=== PATIENT | female | born 1955 ===

== ENCOUNTER → 2021-02-18 11:27 | Outpatient (BNVA) | payer MEDICARE, BC, SELFPAY | PROVIDERS: PCP Internal Medicine; Visit Provider Hospitalist | DX: J41.8 Mixed simple and mucopurulent chronic bronchitis (principal); J47.9 Bronchiectasis, uncomplicated; R91.8 Other nonspecific abnormal finding of lung field; A31.9 Mycobacterial infection, unspecified | CPT/HCPCS: 99212 ==

== ENCOUNTER 2021-05-01 11:41 | Outpatient (REF) | payer MEDICARE, BC, SELFPAY | END 2021-05-01 11:42 | disposition home or self-care (01) | LOC: HO.LNP 11:41 | PROVIDERS: Visit Provider Hospitalist | DX: J47.9 Bronchiectasis, uncomplicated (principal); R91.8 Other nonspecific abnormal finding of lung field | CPT/HCPCS: 87070; 87116; 87205 ==

== ENCOUNTER → 2021-08-20 11:05 | Outpatient (BNVA) | payer MEDICARE, BC, SELFPAY | PROVIDERS: PCP Internal Medicine; Visit Provider Hospitalist | DX: J47.9 Bronchiectasis, uncomplicated (principal); R91.8 Other nonspecific abnormal finding of lung field; J41.8 Mixed simple and mucopurulent chronic bronchitis; A31.9 Mycobacterial infection, unspecified | CPT/HCPCS: 99212 ==

== ENCOUNTER 2021-12-27 10:14 | Outpatient (REF) | payer MEDICARE, BC, SELFPAY ==
--- NOTE | ~2021-12-27 | CT_ITS ---
EXAMINATION: CT CHEST WITHOUT CONTRAST CLINICAL INFORMATION: Pulmonary nodules. Bronchiectasis. COMPARISON: None TECHNIQUE: Multidetector volumetric CT imaging of the chest was done. Axial MIP volume rendering provided. Sagittal and coronal reformatted images were obtained. This CT examination was performed using dose optimization techniques as appropriate, variously including the following: *Automated exposure control *Adjustment of mA and/or kV according to patient size (this includes techniques or standardized protocols for targeted exams where dose is matched to indication/reason for exam; i.e. extremities or head) *Use of iterative reconstruction technique DLP: 303 mGy-cm FINDINGS: The heart is normal in size. Coronary artery calcifications are present. There is no pericardial effusion. A few normal-sized mediastinal lymph nodes are noted. Normal caliber thoracic aorta. No gross retroperitoneal lymphadenopathy. Central airways are patent although some peripheral mucous plugging is noted. There is mild biapical architectural distortion/scarring. There is mild bronchiectasis with suspected compressive atelectasis within the right middle lobe and to a lesser extent within the lingula. Scattered areas of subtle tree-in-bud opacities are noted throughout both lungs. There are a few more well-defined pulmonary nodules, particularly within the right lower lobe where a cluster of nodules measures up to 3.5 mm (image 180/344, series 7). There is no pleural effusion or pneumothorax. Visualized portions of the upper abdomen demonstrate a 7 mm left hepatic cyst. There is also a 2 cm cyst noted within the anterior spleen. Punctate calcification present within the spleen. Mild degenerative changes of the spine. CT/CT chest wo con IMPRESSION: -Subtle scattered areas of tree-in-bud opacities present throughout the lungs suggesting a very mild inflammatory versus infectious process. Clinical correlation recommended. -A few small true pulmonary nodules are identified, the largest measuring 3.5 mm. According to the UPDATED 2017 Fleischner Society recommendations, the advised follow-up imaging for solid nodules < 6 mm is: LOW RISK PATIENT: No routine follow-up. HIGH RISK PATIENT: Optional CT at 12 months. Fleischner guidelines were followed.
== END 2021-12-27 10:15 | disposition home or self-care (01) ==
LOC: HO.CT 10:14
PROVIDERS: Visit Provider Hospitalist
DX: R91.8 Other nonspecific abnormal finding of lung field (principal); J47.9 Bronchiectasis, uncomplicated
CPT/HCPCS: 71250

== ENCOUNTER → 2022-01-15 10:47 | Outpatient (BNVA) | payer MEDICARE, BC, SELFPAY | PROVIDERS: PCP Student in an Organized Health Care Education/Training Program; Visit Provider Hospitalist | DX: R91.8 Other nonspecific abnormal finding of lung field (principal); J41.8 Mixed simple and mucopurulent chronic bronchitis; J47.9 Bronchiectasis, uncomplicated; A31.9 Mycobacterial infection, unspecified | CPT/HCPCS: 99212 ==

== ENCOUNTER → 2022-06-20 11:09 | Outpatient (BNVA) | payer MEDICARE, BC, SELFPAY | PROVIDERS: PCP Student in an Organized Health Care Education/Training Program; Visit Provider Hospitalist | DX: J40 Bronchitis, not specified as acute or chronic (principal); J41.8 Mixed simple and mucopurulent chronic bronchitis; J47.9 Bronchiectasis, uncomplicated; R91.8 Other nonspecific abnormal finding of lung field; A31.9 Mycobacterial infection, unspecified | CPT/HCPCS: 99212 ==

== ENCOUNTER 2022-09-12 09:58 | Outpatient (REF) | payer MEDICARE, BC, SELFPAY ==
--- NOTE | ~2022-09-12 | CT_ITS ---
EXAMINATION: CT CHEST WITHOUT CONTRAST CLINICAL INFORMATION: Abnormal lung findings. COMPARISON: CT chest 12/27/2021. TECHNIQUE: Multidetector volumetric CT imaging of the chest was done. Axial MIP volume rendering provided. Sagittal and coronal reformatted images were obtained. This CT examination was performed using dose optimization techniques as appropriate, variously including the following: *Automated exposure control *Adjustment of mA and/or kV according to patient size (this includes techniques or standardized protocols for targeted exams where dose is matched to indication/reason for exam; i.e. extremities or head) *Use of iterative reconstruction technique DLP: 149 mGy-cm FINDINGS: CLIENT APPLICATION SUPPORT SPECIALIST: Well-inflated lungs. LUNGS: The lungs are hyperinflated without any acute pneumonic process. There are tree in branching in the right upper lobe with a small tumor nodule right upper lobe axial image 162/5. Small clusters of reticular nodular branching is seen right lower lobe superior segment axial image 217/5, tree in branching pattern right upper lobe axial image 229/5 through 238/5. Tree in branching pattern is also seen in the right upper lobe higher up on axial image 158/6 through 218/5. Mild focal thickening of right lateral major fissure image 251/5 reticular nodular stranding right upper lobe axial image 245/5 focal atelectatic changes in the right middle lobe with mild bronchiectasis on axial image 333/5. Tree in branching pattern is seen in the right middle lobe right lower lobe as well as the lingular segments. There is focal atelectasis or thickening of left major fissure at the lingula. MEDIASTINUM: The heart size and the great vessels are normal caliber. Thyroid lobes are symmetric and normal. The central trachea and the bronchi are widely patent. No pericardial effusion seen. No abnormal size mediastinal or hilar lymph nodes seen. CORONARY ARTERY CALCIFICATION: Mild coronary artery calcifications are present. PLEURA: There is no pleural effusion. No pleural mass or thickening. AXILLA: Small shotty lymph nodes are seen in the axilla. UPPER ABDOMEN: Visualized liver, spleen, pancreas and bilateral adrenal glands are unremarkable. OSSEOUS STRUCTURES: No aggressive lytic or sclerotic process seen. CT/CT chest wo IV con IMPRESSION: 1. Hyperinflated lungs without any acute pneumonic process. 2. There is tree in branching pattern in the right upper lobe, right middle lobe, right lower lobe and lingular segments. There is mild bronchiectasis in the right middle lobe. Scattered small micronodules are seen as well. Right middle lobe and lingular atelectasis with mild bronchiectasis changes in these segments. 3. No abnormal mediastinal or axillary lymph nodes seen. 4. These findings are stable and unchanged to previous study. Fleischner guidelines were followed.
== END 2022-09-12 09:59 | disposition home or self-care (01) ==
LOC: HO.CT 09:58
PROVIDERS: PCP Student in an Organized Health Care Education/Training Program; Visit Provider Hospitalist
DX: R91.8 Other nonspecific abnormal finding of lung field (principal)
CPT/HCPCS: 71250

== ENCOUNTER → 2022-09-23 10:57 | Outpatient (BNVA) | payer MEDICARE, BC, SELFPAY | PROVIDERS: PCP Student in an Organized Health Care Education/Training Program; Visit Provider Hospitalist | DX: R91.8 Other nonspecific abnormal finding of lung field (principal); J47.9 Bronchiectasis, uncomplicated; J41.8 Mixed simple and mucopurulent chronic bronchitis; A31.9 Mycobacterial infection, unspecified | CPT/HCPCS: 99212 ==

== ENCOUNTER → 2023-01-16 14:43 | Outpatient (BNVA) | payer MEDICARE, BC, SELFPAY | PROVIDERS: PCP Student in an Organized Health Care Education/Training Program; Visit Provider Nurse Practitioner Family | DX: J41.8 Mixed simple and mucopurulent chronic bronchitis (principal); J47.9 Bronchiectasis, uncomplicated | CPT/HCPCS: 99212 ==

== ENCOUNTER 2023-03-17 14:58 | Outpatient (AMB) | payer MEDICARE, BC, SELFPAY ==
--- NOTE | 2023-03-17 15:13 | A.OFFVIS_ITS ---
Intake Vital Signs 03/17/23 15:16 Height 5 ft 6 in Weight 165 lb 5.547 oz BMI 26.7 BP 126/70 Blood Pressure Location Lt brachial Position Sitting Pulse 78 Pulse Source Pulse Oximeter Pulse Oximetry (%) 97 Intake Visit Reasons: Cough dry, times 4 days It Specialist Required: No Store Operations Manager: Store Operations Manager offered & declined Accompanied by: Self / Same As Patient Allergies ciprofloxacin Allergy (Severe, Verified 03/17/23 15:25) CDIFF levofloxacin Allergy (Severe, Verified 03/17/23 15:25) CDIFF moxifloxacin Allergy (Severe, Verified 03/17/23 15:25) CDIFF Clindamycin HCl Allergy (Severe, Uncoded 03/17/23 15:25) CDIFF Medication List - Last Reconciled 03/17/23 by Jo Ann Ballesteros LPN albuterol sulfate 90 mcg/actuation 2 inhalations inhalation Q6H PRN 30 days ascorbic acid (vitamin C) 500 mg PO DAILY aspirin 81 mg PO DAILY atorvastatin 80 mg PO DAILY budesonide-formoterol 160-4.5 mcg/actuation (Symbicort) 2 puffs PO BID calcium carbonate (Calcium) 600 mg PO DAILY cholecalciferol (vitamin D3) 50 mcg PO DAILY doxycycline hyclate 100 mg PO BID lorazepam 0.5 mg PO DAILY PRN multivitamin 1 tab PO DAILY nebulizers As directed omega-3 fatty acids (Fish Oil Concentrate) 1,000 mg PO DAILY omeprazole 40 mg PO DAILY prednisone 40 mg (2 x 20 mg) PO DAILY 5 days propranolol ER 80 mg PO BEDTIME sodium chloride 7% (Hyper-Steve) 4 mL inhalation BID 30 days zinc 50 mg PO DAILY HPI Cough dry, times 4 days HPI Details Nicole is a pleasant 67 year old female followed for bronchiectasis, COPD, mycobacterial disease and pulmonary nodules. Today she presents for a sick visit. At baseline, she is moderately controlled on using her symbicort, albuterol, flonase and hypertonic saline.??She reports a productive with yellow sputum as well as shortness of breath with exertion, wheezing and chest tightness since Thursday after a cookout. She reports increasing her albuterol use to 2-3 times per day with minimal relief. Denies any fevers, chills or known sick contacts. She presented in January with similar presentation and had complete resolution of symptoms after doxycycline and prednisone. [facility] Medical History (Updated 10/16/22 @ 20:23 by Giovanny Anthony MD) Bronchiectasis COPD (chronic obstructive pulmonary disease) Mycobacterial disease Pulmonary nodules Social History (Updated 03/17/23 @ 15:28 by Jo Ann Ballesteros LPN) Patient Tobacco Use Status: Former Tobacco user Tobacco use type: Cigarette Cigarette Packs Per Day: 1 Cigarettes Per Day: 20 Years Smoked: 20 years Review of Systems Const Denies body aches, Denies chills, Denies excessive sweating, Denies fever(s), Reports headache(s) and Denies night sweats Eyes Denies dry eyes, Denies irritation and Denies itchy eyes ENT Reports Normal hearing present, Reports headache(s), Reports nasal discharge, Denies post nasal drip, Reports sinus pain, Reports sinus pressure and Denies sore throat Card Denies chest pain, Denies chest pain at rest, Denies chest pain with activity, Reports dyspnea on exertion, Denies orthopnea and Denies paroxysmal nocturnal dyspnea Resp Reports change in phlegm color, Reports chest congestion, Reports cough, Denies hemoptysis, Reports excessive phlegm production, Denies pain with cough, Reports dyspnea on exertion, Denies stridor and Reports wheezing Neuro Reports Normal hearing present and Reports headache(s) Endo Denies excessive sweating Jorge/Lymph Denies lymphadenopathy Aller/Immun Denies itchy eyes, Denies seasonal rhinorrhea and Reports wheezing Physical Exam Vital Signs: Last Vital Signs Pulse 78 03/17/23 15:16 BP 126/70 03/17/23 15:16 Pulse Ox 97 03/17/23 15:16 BMI result Body Mass Index 26.7 Const General: cooperative, healthy appearing, no acute distress, well developed and alert Orientation/consciousness: patient oriented x3 Limitations: no limitations HEENT Head: Yes normal to inspection, Yes normocephalic and Yes atraumatic Ears: hearing grossly normal bilaterally and external ears normal Face and sinus: Yes sinuses nontender Eyes General: appearance normal, both eyes and all related structures Eyelids: Yes eyelids normal Sclerae: sclerae normal EOM: EOMs intact bilaterally Neck Neck: Yes normal visual inspection and Yes no lymphadenopathy Lymphatic: no lymphadenopathy noted Chest Chest palpation & inspection: normal inspection of the chest Resp Effort & Inspection: normal respiratory effort, able to speak in complete sentences, no audible wheezes, Actively coughing Quality: wet, no stridor, not tachypneic, no tripod positioning and no use of accessory muscles Auscultation: no crackles, no rales, no rhonchi and diminished lung sounds Cardio Rate: regular rate Rhythm: regular rhythm Skin Other: warm, dry General skin exam: no rashes or lesions noted Neuro General: patient oriented x3 Cranial nerves: Yes Normal hearing present Cognition (Neuro): normal cognition Gait exam (Neuro): Normal gait present Extrem General: Yes normal to inspection, Yes capillary refill normal, Yes no clubbing, cyanosis or edema and Yes no pedal edema Psych Appearance: grossly normal and well kempt Speech and movement: Normal speech and movement present and Clear speech present Affect: normal affect Attitude: cooperative Thought process: Normal thought process present Thought content: Normal thought content present Insight: Good insight present (Psych) Judgement: Good judgement present (Psych) Assessment & Plan Assessment & Plan (1) COPD (chronic obstructive pulmonary disease): Code(s): J44.9 - Chronic obstructive pulmonary disease, unspecified Qualifiers: COPD type: chronic bronchitis Chronic bronchitis type: mixed simple and mucopurulent Qualified Code(s): J41.8 - Mixed simple and mucopurulent chronic bronchitis (2) Bronchiectasis: Code(s): J47.9 - Bronchiectasis, uncomplicated Qualifiers: Bronchiectasis type: uncomplicated Qualified Code(s): J47.9 - Bronchiectasis, uncomplicated Plan Nicole presents with increased productive cough, wheezing and dyspnea on exertion that is not relieved with her current medication regimen. Will treat Nicole for an acute exacerbation with doxycycline and prednisone which she has tolerated in the past. She is aware to contact the office if her symptoms do not improve or worsen. All questions were answered and patient is in agreement of plan. Medications: New prednisone 40 mg (2 x 20 mg) PO DAILY 10 tabs 0RF Refilled albuterol sulfate 90 mcg/actuation 2 inhalations inhalation Q6H 30 days PRN 8.5 grams 12RF shortness of breath or wheezing J44.9 - Chronic obstructive pulmonary disease, unspecified Coding Level of Care Code Est Pt Level 3 (06644) Diagnoses COPD (chronic obstructive pulmonary disease) J41.8 COPD type: chronic bronchitis Chronic bronchitis type: mixed simple and mucopurulent Bronchiectasis J47.9 Bronchiectasis type: uncomplicated
[2023-03-17 15:16] VITALS: BP 126/70; PULSE 78; O2SAT 97; BMI 26.7
== END 2023-03-17 15:56 | disposition home or self-care (01) ==
PROVIDERS: PCP Student in an Organized Health Care Education/Training Program; Visit Provider Nurse Practitioner Family
DX: J41.8 Mixed simple and mucopurulent chronic bronchitis (principal); J47.9 Bronchiectasis, uncomplicated
CPT/HCPCS: 99213

== ENCOUNTER → 2023-03-17 14:58 | Outpatient (BNVA) | payer MEDICARE, BC, SELFPAY | PROVIDERS: PCP Student in an Organized Health Care Education/Training Program; Visit Provider Nurse Practitioner Family | DX: J47.9 Bronchiectasis, uncomplicated (principal); J41.8 Mixed simple and mucopurulent chronic bronchitis; R91.8 Other nonspecific abnormal finding of lung field; Z79.82 Long term (current) use of aspirin; Z79.52 Long term (current) use of systemic steroids; Z79.899 Other long term (current) drug therapy; Z87.891 Personal history of nicotine dependence | CPT/HCPCS: 99212 ==

== ENCOUNTER 2024-01-13 11:06 | Outpatient (AMB) | payer MEDICARE, BC, SELFPAY ==
[2024-01-13 11:09] VITALS: BP 117/60; PULSE 73; O2SAT 96; BMI 27.0
--- NOTE | 2024-01-13 11:09 | A.OFFVIS_ITS ---
Vital Signs 01/13/24 11:09 Height 5 ft 6 in Weight 167 lb BMI 27.0 BP 117/60 Blood Pressure Location Rt brachial Position Sitting Pulse 73 Pulse Source Doppler Pulse Oximetry (%) 96 Oxygen Delivery Method Room Air Intake Visit Reasons: COPD Allergies ciprofloxacin Allergy (Severe, Verified 01/13/24 11:15) CDIFF levofloxacin Allergy (Severe, Verified 01/13/24 11:15) CDIFF moxifloxacin Allergy (Severe, Verified 01/13/24 11:15) CDIFF Penicillins Allergy (Unknown, Verified 01/13/24 11:15) Unknown Clindamycin HCl Allergy (Severe, Uncoded 03/17/23 15:25) CDIFF HPI Comments Details: The patient is a 68-year-old woman with a known history of pulmonary nodules, mycobacterium avium complex pulmonary infection in addition to asthma. Apparently she was in her usual state health until recently when she was exposed to sick contact. She started developing worsening respiratory symptoms. She was placed on a 5 day course of prednisone and a Z-Niko. She has felt to have pneumonia at the time. After taking medication she was no better in 1 back to her primary care. At that point the patient was given another course of prednisone x5 days and also doxycycline. Overall she is feeling a little better. Still having issues with shortness of breath and coughing. The mucus is last in amount. On examination she still has wheezing. It's likely she was exposed to respiratory syncytial virus with ongoing bronchiolitis consistent with respiratory symptoms. In the meantime the patient has pulmonary nodules are being followed with yearly CAT scans. Her next CAT scan is to in December of this year. 01/15/2022 the patient is here for a pulmonary follow-up visit. Overall she is doing well. Denies any worsening respiratory symptoms. She has a cough, usually productive after using the nebulizer for CPT, moderate in severity. Denies any fevers or chills or weight loss. The patient did have a recent CT scan of the chest that was personally by me and also compared to her previous CT scan from 2019 done and at different center. It appears that the patient has numerous pulmonary nodules in a lot of them appear to be stable. However, she does have for pulmonary nodules in the right lower lobe that appear to be increasing size now measuring between 4-5 mm in size. The patient is concerned if any of those nodules could be malignant. At this point is likely related to the underlying smoldering infectious process. But, will need to monitor him closely to make sure that they do not increase in size. The patient does have a rescue inhaler available she has not had to use it. She continues on the Symbicort. Will go ahead and follow-up with a CT scan in 8 months. If the patient develops any worsening symptoms prior to that she is to call the office for an earlier evaluation. 06/20/2022 the patient is here for sick visit. She started developing worsening respiratory symptoms the last 4-5 days. She has tested about 6 stent negative for COVID-19. She has complaint of a cough which is productive in nature. Usually yellowish phlegm. The cough is persistent she is having hard time sleeping. To start [id number] cough syrup including Mucinex DM among others without significant relief. Positive sick contacts. The patient has had issues in the past with C diff colitis. Therefore will go ahead with doxycycline to be a good therapy for her likely bacterial bronchitis. 09/23/2022 the patient is here for a pulmonary follow-up visit. The patient has been doing well. She denies any significant shortness of breath or cough. She has been using her nebulizer typically in the morning followed by the flutter valve. Then subsequently after that she takes her Symbicort twice a day. She is wondering if she is taking the Symbicort and the albuterol to close. Therefore, she will take the Symbicort later on during the daytime. The patient did have a CT scan of the chest that we personally reviewed. Appears that he she does have waxing waning nodular densities but overall the pulmonary nodules on the right hemithorax appear to be decreased in size. She does have increased tree-in-bud density likely secondary to her smoldering infection. At this point is no reason to treat her for the mycobacterium avium complex will continue to monitor her closely. Will hold off on additional CT scans unless the patient becomes symptomatic however. 01/13/2024 the patient is here for a pulmonary follow-up visit. Overall the patient has been doing well. She did have a few episodes over the winter when she was became sick and she was evaluated by our office and she was treated effectively for bronchitis. The patient currently is doing better from a respiratory status. She does have a Symbicort inhaler and she also has a Ventolin inhaler which she finds both useful. She has not had to use a nebulizer which is reassuring. She does not have a lot of mucus congestion. She knows to perform the CPT specially if she is congested to minimize mucus plugging and to minimize the mycobacterial disease. The patient did have a CT scan back in September 2022 which we personally reviewed demonstrating multiple subcentimeter pulmonary nodules. The nodules could be related to the mycobacterial disease although he has not 100%. Therefore, will have her return in 6 months with after having a CT scan to review. If the patient develops any worsening symptoms prior to that she will call for an earlier assessment. FORMERLY [facility] Medical History (Updated 06/22/22 @ 20:23 by Giovanny Anthony MD) Mycobacterial disease COPD (chronic obstructive pulmonary disease) Bronchiectasis Pulmonary nodules Social History Patient Tobacco Use Status: Former Tobacco user Tobacco use type: Cigarette Cigarette Packs Per Day: 1 Cigarettes Per Day: 20 Years Smoked: 20 years Review of Systems Const Denies fatigue ENT Denies change in voice, Denies lip swelling, Denies mouth pain, Reports nasal congestion, Reports nasal discharge and Denies tongue swelling Card Denies chest pain Resp Denies change in phlegm color, Denies chest congestion and Reports cough GI Denies abdominal pain Musc Denies no additional complaints Neuro Denies Neuro-related abnormal movements Psych Denies no additional complaints Endo Denies fatigue Jorge/Lymph Denies easy bleeding and Denies lymphadenopathy Aller/Immun Denies lip swelling and Denies tongue swelling Physical Exam Vital Signs: Last Vital Signs Pulse 73 01/13/24 11:09 BP 117/60 01/13/24 11:09 Pulse Ox 96 01/13/24 11:09 Oxygen Delivery Method Room Air 01/13/24 11:09 BMI result Body Mass Index 27.0 Const General: alert HEENT General nose exam: Abnormal external nose present and Nasal discharge present Eyes Pupils: Equal, round and reactive pupils present Neck Neck: Yes normal visual inspection, Yes full ROM and Yes no lymphadenopathy Chest Chest palpation & inspection: normal inspection of the chest Resp Auscultation: diminished lung sounds Cardio Rate: regular rate Rhythm: regular rhythm Heart sounds: S1 normal heart sound present and S2 normal heart sound present GI Palpation (GI): Soft to palpation and nontender Auscultation: normal bowel sounds General: Yes no CVA tenderness Back/Spine/Pelvis Back: no CVA tenderness Skin General skin exam: rashes and/or lesions noted Neuro Cranial nerves: Yes Equal, round and reactive pupils present Assessment & Plan Assessment & Plan (1) COPD (chronic obstructive pulmonary disease): Code(s): J44.9 - Chronic obstructive pulmonary disease, unspecified Category: Medical Qualifiers: COPD type: chronic bronchitis Chronic bronchitis type: mixed simple and mucopurulent Qualified Code(s): J41.8 - Mixed simple and mucopurulent chronic bronchitis (2) Bronchiectasis: Code(s): J47.9 - Bronchiectasis, uncomplicated Category: Medical Qualifiers: Bronchiectasis type: uncomplicated Qualified Code(s): J47.9 - Bronchiectasis, uncomplicated (3) Pulmonary nodules: Code(s): R91.8 - Other nonspecific abnormal finding of lung field Category: Medical (4) Mycobacterial disease: Code(s): A31.9 - Mycobacterial infection, unspecified Category: Medical Plan Continue Symbicort continue CPT with hypertonic saline via nebulizer followed by Acapella valve Use short-acting beta agonist before hypertonic saline CT chest in 6 months Follow-up in 6-8 months Orders: Orders CT chest wo IV con 6 Months R91.8 - Other nonspecific abnormal finding of lung field Coding Level of Care Code Est Pt Level 4 (98837) Diagnoses Mixed simple and mucopurulent chronic bronchitis J41.8 COPD type: chronic bronchitis Chronic bronchitis type: mixed simple and mucopurulent Bronchiectasis without complication J47.9 Bronchiectasis type: uncomplicated Pulmonary nodules R91.8 Mycobacterial disease A31.9 Time Spent (min) 17
== END 2024-01-13 11:35 | disposition home or self-care (01) ==
PROVIDERS: PCP Student in an Organized Health Care Education/Training Program; Visit Provider Hospitalist
DX: J41.8 Mixed simple and mucopurulent chronic bronchitis (principal); J47.9 Bronchiectasis, uncomplicated; R91.8 Other nonspecific abnormal finding of lung field; A31.9 Mycobacterial infection, unspecified
CPT/HCPCS: 99214

== ENCOUNTER → 2024-01-13 11:06 | Outpatient (BNVA) | payer MEDICARE, BC, SELFPAY | PROVIDERS: PCP Student in an Organized Health Care Education/Training Program; Visit Provider Hospitalist | DX: J41.8 Mixed simple and mucopurulent chronic bronchitis (principal); J47.9 Bronchiectasis, uncomplicated; R91.8 Other nonspecific abnormal finding of lung field; A31.9 Mycobacterial infection, unspecified | CPT/HCPCS: 99212 ==

== ENCOUNTER 2024-06-09 07:22 | Outpatient (REF) | payer MEDICARE, BC, SELFPAY ==
--- NOTE | ~2024-06-09 | CT_ITS ---
EXAMINATION: CT CHEST WITHOUT CONTRAST CLINICAL INFORMATION: Pulmonary nodule COMPARISON: CT chest 09/12/2022 TECHNIQUE: Multidetector volumetric CT imaging of the chest was done. Axial MIP volume rendering provided. Sagittal and coronal reformatted images were obtained. This CT examination was performed using dose optimization techniques as appropriate, variously including the following: *Automated exposure control *Adjustment of mA and/or kV according to patient size (this includes techniques or standardized protocols for targeted exams where dose is matched to indication/reason for exam; i.e. extremities or head) *Use of iterative reconstruction technique DLP: 143 mGy-cm FINDINGS: LUNGS: Again seen are multiple areas of tree-in-bud formation involving all lobes predominantly peripheral. These appear slightly worse when compared to the prior study. None of the nodules are larger than 4 mm [place] images have been saved. Mild emphysematous changes are seen along with bronchial thickening. There is atelectasis and traction bronchiectasis seen in both the right middle lobe and lingula abutting the heart border. No concerning pulmonary masses seen to suggest malignancy. MEDIASTINUM: The mediastinum is normal. CORONARY ARTERY CALCIFICATION: Moderate PLEURA: There is no pleural effusion. No pleural mass or thickening. AXILLA: No lymphadenopathy. UPPER ABDOMEN: Unremarkable. OSSEOUS STRUCTURES: Unremarkable. CT/CT chest wo IV con IMPRESSION: 1. Slight worsening of tree-in-bud formation involving all lobes. Findings are most consistent with infectious/inflammatory etiology. 2. No concerning pulmonary masses are seen to suggest malignancy. 3. Mild emphysematous changes and bronchial thickening. 4. Atelectasis and traction bronchiectasis in the right middle lobe and lingula. 5. Moderate coronary artery calcification. Fleischner guidelines were followed. Electronically signed by: Altaf Smith MD 06/09/2024 02:50 PM EDT
== END 2024-06-09 07:23 | disposition home or self-care (01) ==
LOC: HO.CT 07:22
PROVIDERS: PCP Family Medicine; Visit Provider Hospitalist
DX: R91.8 Other nonspecific abnormal finding of lung field (principal)
CPT/HCPCS: 71250

== ENCOUNTER 2024-06-24 10:50 | Outpatient (AMB) | payer MEDICARE, BC, SELFPAY ==
--- NOTE | 2024-06-24 10:55 | MHC.OFFVIS ---
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 Apparently she was in her usual state health until recently when she was exposed to sick contact. She started developing worsening respiratory symptoms. She was placed on a 5 day course of prednisone and a Z-Niko. She has felt to have pneumonia at the time. After taking medication she was no better in 1 back to her primary care. At that point the patient was given another course of prednisone x5 days and also doxycycline. Overall she is feeling a little better. Still having issues with shortness of breath and coughing. The mucus is last in amount. On examination she still has wheezing. It's likely she was exposed to respiratory syncytial virus with ongoing bronchiolitis consistent with respiratory symptoms. In the meantime the patient has pulmonary nodules are being followed with yearly CAT scans. Her next CAT scan is to in December of this year. 01/15/2022 the patient is here for a pulmonary follow-up visit. Overall she is doing well. Denies any worsening respiratory symptoms. She has a cough, usually productive after using the nebulizer for CPT, moderate in severity. Denies any fevers or chills or weight loss. The patient did have a recent CT scan of the chest that was personally by me and also compared to her previous CT scan from 2019 done and at different center. It appears that the patient has numerous pulmonary nodules in a lot of them appear to be stable. However, she does have for pulmonary nodules in the right lower lobe that appear to be increasing size now measuring between 4-5 mm in size. The patient is concerned if any of those nodules could be malignant. At this point is likely related to the underlying smoldering infectious process. But, will need to monitor him closely to make sure that they do not increase in size. The patient does have a rescue inhaler available she has not had to use it. She continues on the Symbicort. Will go ahead and follow-up with a CT scan in 8 months. If the patient develops any worsening symptoms prior to that she is to call the office for an earlier evaluation. 06/20/2022 the patient is here for sick visit. She started developing worsening respiratory symptoms the last 4-5 days. She has tested about 6 stent negative for COVID-19. She has complaint of a cough which is productive in nature. Usually yellowish phlegm. The cough is persistent she is having hard time sleeping. To start [id number] cough syrup including Mucinex DM among others without significant relief. Positive sick contacts. The patient has had issues in the past with C diff colitis. Therefore will go ahead with doxycycline to be a good therapy for her likely bacterial bronchitis. 09/23/2022 the patient is here for a pulmonary follow-up visit. The patient has been doing well. She denies any significant shortness of breath or cough. She has been using her nebulizer typically in the morning followed by the flutter valve. Then subsequently after that she takes her Symbicort twice a day. She is wondering if she is taking the Symbicort and the albuterol to close. Therefore, she will take the Symbicort later on during the daytime. The patient did have a CT scan of the chest that we personally reviewed. Appears that he she does have waxing waning nodular densities but overall the pulmonary nodules on the right hemithorax appear to be decreased in size. She does have increased tree-in-bud density likely secondary to her smoldering infection. At this point is no reason to treat her for the mycobacterium avium complex will continue to monitor her closely. Will hold off on additional CT scans unless the patient becomes symptomatic however. 01/13/2024 the patient is here for a pulmonary follow-up visit. Overall the patient has been doing well. She did have a few episodes over the winter when she was became sick and she was evaluated by our office and she was treated effectively for bronchitis. The patient currently is doing better from a respiratory status. She does have a Symbicort inhaler and she also has a Ventolin inhaler which she finds both useful. She has not had to use a nebulizer which is reassuring. She does not have a lot of mucus congestion. She knows to perform the CPT specially if she is congested to minimize mucus plugging and to minimize the mycobacterial disease. The patient did have a CT scan back in September 2022 which we personally reviewed demonstrating multiple subcentimeter pulmonary nodules. The nodules could be related to the mycobacterial disease although he has not 100%. Therefore, will have her return in 6 months with after having a CT scan to review. If the patient develops any worsening symptoms prior to that she will call for an earlier assessment. 06/24/2024 the patient is here for a pulmonary follow-up visit. Overall the patient has been doing well. She has been using her respiratory therapy as prescribed. She continues using the CPT device. Denies any worsening respiratory symptoms. Denies any worsening cough chest congestion. She has not had any chest pain. Denies any night sweats or weight loss or fevers. Overall she is doing good on the current therapy. She did have a CT scan of the chest that I personally reviewed with her. Per the reading there is some areas indeed looked a little bit more involved such as the left upper lobe area where she did have some treating budding. But also noticed that other areas that were involved appear to be little bit more improved. Therefore there is a what seen and waning affect. At this point clinically the patient doing very well and does not need to start any antimicrobial therapy. The patient already was tried in the past and failed due to the developing of the C diff colitis. Therefore this point unless the patient is significantly symptomatic in significant abnormalities on the CT scan will hold off on any therapy. In view of the interval worsening disease in the left upper lobe area with new pulmonary nodules will have to repeat the CT scan in a year's time. Therefore she will continue the current therapy and follow-up in a year with a repeat CT scan. If the patient develops any worsening symptoms prior to that she will call for an earlier assessment. FORMERLY [facility], [facility] Medical History (Updated 06/22/22 @ 20:23 by Giovanny Anthony MD) Mycobacterial disease COPD (chronic obstructive pulmonary disease) Bronchiectasis Pulmonary nodules Social History Patient Tobacco Use Status: Former Tobacco user Tobacco use type: Cigarette Cigarette Packs Per Day: 1 Cigarettes Per Day: 20 Years Smoked: 20 years Review of Systems Const Denies fatigue and Denies fever(s) ENT Denies change in voice, Denies lip swelling, Denies mouth pain, Reports nasal congestion, Reports nasal discharge and Denies tongue swelling Card Denies chest pain Resp Denies change in phlegm color, Denies chest congestion and Reports cough GI Denies abdominal pain Musc Denies no additional complaints Neuro Denies Neuro-related abnormal movements Psych Denies no additional complaints Endo Denies fatigue Jorge/Lymph Denies easy bleeding and Denies lymphadenopathy Aller/Immun Denies lip swelling and Denies tongue swelling Physical Exam Vital Signs: Last Vital Signs Pulse 61 06/24/24 10:57 BP 128/70 06/24/24 10:57 Pulse Ox 99 06/24/24 10:57 Oxygen Delivery Method Room Air 06/24/24 10:57 BMI result Body Mass Index 25.8 Const General: alert HEENT General nose exam: Abnormal external nose present and Nasal discharge present Eyes Pupils: Equal, round and reactive pupils present Neck Neck: Yes normal visual inspection, Yes full ROM and Yes no lymphadenopathy Chest Chest palpation & inspection: normal inspection of the chest Resp Auscultation: clear to auscultation bilaterally Cardio Rate: regular rate Rhythm: regular rhythm Heart sounds: S1 normal heart sound present and S2 normal heart sound present GI Palpation (GI): Soft to palpation and nontender Auscultation: normal bowel sounds General: Yes no CVA tenderness Back/Spine/Pelvis Back: no CVA tenderness Skin General skin exam: rashes and/or lesions noted Neuro Cranial nerves: Yes Equal, round and reactive pupils present Assessment & Plan Assessment & Plan (1) COPD (chronic obstructive pulmonary disease): Code(s): J44.9 - Chronic obstructive pulmonary disease, unspecified Category: Medical Qualifiers: COPD type: chronic bronchitis Chronic bronchitis type: mixed simple and mucopurulent Qualified Code(s): J41.8 - Mixed simple and mucopurulent chronic bronchitis (2) Bronchiectasis: Code(s): J47.9 - Bronchiectasis, uncomplicated Category: Medical Qualifiers: Bronchiectasis type: uncomplicated Qualified Code(s): J47.9 - Bronchiectasis, uncomplicated (3) Pulmonary nodules: Code(s): R91.8 - Other nonspecific abnormal finding of lung field Category: Medical (4) Mycobacterial disease: Code(s): A31.9 - Mycobacterial infection, unspecified Category: Medical Plan Continue Symbicort continue CPT with hypertonic saline via nebulizer followed by Acapella valve Use short-acting beta agonist before hypertonic saline CT chest in 12 months Follow-up in 12 months Orders: Orders CT chest wo IV con 1 Year R91.8 - Other nonspecific abnormal finding of lung field Coding Level of Care Code Est Pt Level 4 (96869) Diagnoses Mixed simple and mucopurulent chronic bronchitis J41.8 COPD type: chronic bronchitis Chronic bronchitis type: mixed simple and mucopurulent Bronchiectasis without complication J47.9 Bronchiectasis type: uncomplicated Pulmonary nodules R91.8 Mycobacterial disease A31.9 Time Spent (min) 17
[2024-06-24 10:57] VITALS: BP 128/70; PULSE 61; O2SAT 99; BMI 25.8
== END 2024-06-24 11:21 | disposition home or self-care (01) ==
PROVIDERS: PCP Student in an Organized Health Care Education/Training Program; Visit Provider Hospitalist
DX: J41.8 Mixed simple and mucopurulent chronic bronchitis (principal); J47.9 Bronchiectasis, uncomplicated; R91.8 Other nonspecific abnormal finding of lung field; A31.9 Mycobacterial infection, unspecified
CPT/HCPCS: 99214

== ENCOUNTER → 2024-06-24 10:50 | Outpatient (BNVA) | payer MEDICARE, BC, SELFPAY | PROVIDERS: PCP Student in an Organized Health Care Education/Training Program; Visit Provider Hospitalist | DX: J47.9 Bronchiectasis, uncomplicated (principal); J41.8 Mixed simple and mucopurulent chronic bronchitis; A31.9 Mycobacterial infection, unspecified; R91.8 Other nonspecific abnormal finding of lung field | CPT/HCPCS: 99212 ==

== ENCOUNTER 2024-07-13 13:12 | Outpatient (AMB) | payer MEDICARE, BC, SELFPAY ==
[2024-07-13 13:22] VITALS: BP 112/54; PULSE 78; O2SAT 95; BMI 27.2
--- NOTE | 2024-07-13 13:22 | MHC.OFFVIS ---
Vital Signs 07/13/24 13:22 Height 5 ft 6 in Weight 168 lb 8 oz BMI 27.2 BP 112/54 L Blood Pressure Location Lt brachial Position Sitting Pulse 78 Pulse Source Pulse Oximeter Pulse Oximetry (%) 95 Oxygen Delivery Method Room Air Intake Visit Reasons: Prod cough Allergies ciprofloxacin Allergy (Severe, Verified 07/13/24 13:27) CDIFF levofloxacin Allergy (Severe, Verified 07/13/24 13:27) CDIFF moxifloxacin Allergy (Severe, Verified 07/13/24 13:27) CDIFF Penicillins Allergy (Unknown, Verified 07/13/24 13:27) Unknown Clindamycin HCl Allergy (Severe, Uncoded 07/13/24 13:27) CDIFF HPI HPI Prod cough: Details: Nicole is a pleasant 69 year old female followed for bronchiectasis, COPD, mycobacterial disease and pulmonary nodules. Today she presents for a sick visit. At baseline, she is moderately controlled on using her symbicort, albuterol, flonase and hypertonic saline.??She is under the care of Dr. Anthony and presents today for an acute visit. She was recently on a cruise, returned Thursday with worsening respiratory symptoms that started Thursday. She reports a productive with yellow to brown sputum as well as wheezing and chest tightness with associated chills. She has been using symbicort QD, saline nebulizer and albuterol MDI with suboptimal effect. She was prescribed doxycycline two days and reports improvements however concerned with wheezing. [facility] Medical History (Updated 06/22/22 @ 20:23 by Giovanny Anthony MD) Mycobacterial disease COPD (chronic obstructive pulmonary disease) Bronchiectasis Pulmonary nodules Social History Patient Tobacco Use Status: Former Tobacco user Tobacco use type: Cigarette Cigarette Packs Per Day: 1 Cigarettes Per Day: 20 Years Smoked: 20 years Review of Systems Const Denies body aches, Reports chills, Denies excessive sweating, Denies fever(s), Reports headache(s) and Denies night sweats Eyes Denies dry eyes, Denies irritation and Denies itchy eyes ENT Reports Normal hearing present, Reports headache(s), Reports nasal discharge, Denies post nasal drip, Denies sinus pain, Denies sinus pressure and Denies sore throat Card Denies chest pain, Denies chest pain at rest, Denies chest pain with activity, Reports dyspnea on exertion, Denies orthopnea and Denies paroxysmal nocturnal dyspnea Resp Reports change in phlegm color, Reports chest congestion, Reports cough, Denies hemoptysis, Reports excessive phlegm production, Denies pain with cough, Reports dyspnea on exertion, Denies stridor and Reports wheezing Neuro Reports Normal hearing present and Reports headache(s) Endo Denies excessive sweating Jorge/Lymph Denies lymphadenopathy Aller/Immun Denies itchy eyes, Denies seasonal rhinorrhea and Reports wheezing Physical Exam Vital Signs: Last Vital Signs Pulse 78 07/13/24 13:22 BP 112/54 L 07/13/24 13:22 Pulse Ox 95 07/13/24 13:22 Oxygen Delivery Method Room Air 07/13/24 13:22 BMI result Body Mass Index 27.2 Const General: cooperative, comfortable, no acute distress, well developed and alert Orientation/consciousness: patient oriented x3 Limitations: no limitations HEENT Head: Yes normal to inspection, Yes normocephalic and Yes atraumatic Ears: hearing grossly normal bilaterally and external ears normal Eyes General: appearance normal, both eyes and all related structures Eyelids: Yes eyelids normal Sclerae: sclerae normal EOM: EOMs intact bilaterally Neck Neck: Yes normal visual inspection and Yes no lymphadenopathy Lymphatic: no lymphadenopathy noted Chest Chest palpation & inspection: normal inspection of the chest Resp Other: postexhalation cough through respiratory exam Effort & Inspection: normal respiratory effort, able to speak in complete sentences, no audible wheezes, no stridor, not tachypneic, no tripod positioning and no use of accessory muscles Auscultation: diminished lung sounds Cardio Jugular venous distension: no JVD Rate: regular rate Rhythm: regular rhythm Skin Other: warm, dry General skin exam: no rashes or lesions noted Neuro General: patient oriented x3 Cranial nerves: Yes Normal hearing present Cognition (Neuro): normal cognition Gait exam (Neuro): Normal gait present Extrem General: Yes normal to inspection, Yes capillary refill normal, Yes no clubbing, cyanosis or edema and Yes no pedal edema Psych Appearance: grossly normal and well kempt Speech and movement: Normal speech and movement present and Clear speech present Affect: normal affect Attitude: cooperative Thought process: Normal thought process present Thought content: Normal thought content present Insight: Good insight present (Psych) Judgement: Good judgement present (Psych) Assessment & Plan Assessment & Plan (1) COPD (chronic obstructive pulmonary disease): Code(s): J44.9 - Chronic obstructive pulmonary disease, unspecified Category: Medical Qualifiers: COPD type: chronic bronchitis Chronic bronchitis type: mixed simple and mucopurulent Qualified Code(s): J41.8 - Mixed simple and mucopurulent chronic bronchitis (2) Bronchiectasis: Code(s): J47.9 - Bronchiectasis, uncomplicated Category: Medical Qualifiers: Bronchiectasis type: uncomplicated Qualified Code(s): J47.9 - Bronchiectasis, uncomplicated (3) Pulmonary nodules: Code(s): R91.8 - Other nonspecific abnormal finding of lung field Category: Medical Plan Advised Nicole to continue doxycyline as she has had improvements since starting and will send in prednisone. Encouraged patient to use mucinex DM. All questions were answered and patient is in agreement of plan. Will follow up for regularly scheduled appointment with Dr. Anthony or sooner if needed. Medications: Refilled prednisone 40 mg (2 x 20 mg) PO DAILY 10 tabs 0RF Coding Level of Care Code Est Pt Level 3 (20904) Diagnoses Mixed simple and mucopurulent chronic bronchitis J41.8 COPD type: chronic bronchitis Chronic bronchitis type: mixed simple and mucopurulent Bronchiectasis without complication J47.9 Bronchiectasis type: uncomplicated Pulmonary nodules R91.8
== END 2024-07-13 13:50 | disposition home or self-care (01) ==
LOC: HO.HPSW 13:13
PROVIDERS: PCP Student in an Organized Health Care Education/Training Program; Visit Provider Nurse Practitioner Family
DX: J41.8 Mixed simple and mucopurulent chronic bronchitis (principal); J47.9 Bronchiectasis, uncomplicated; R91.8 Other nonspecific abnormal finding of lung field
CPT/HCPCS: 99213

== ENCOUNTER → 2024-07-13 13:12 | Outpatient (BNVA) | payer MEDICARE, BC, SELFPAY | PROVIDERS: PCP Student in an Organized Health Care Education/Training Program; Visit Provider Nurse Practitioner Family | DX: J41.8 Mixed simple and mucopurulent chronic bronchitis (principal); J47.9 Bronchiectasis, uncomplicated; R91.8 Other nonspecific abnormal finding of lung field; F17.210 Nicotine dependence, cigarettes, uncomplicated; Z79.899 Other long term (current) drug therapy | CPT/HCPCS: 99212 ==

== ENCOUNTER 2024-07-20 13:01 | Outpatient (AMB) | payer MEDICARE, BC, SELFPAY ==
[2024-07-20 13:05] VITALS: BP 120/58; PULSE 87; O2SAT 93; BMI 26.7
--- NOTE | 2024-07-20 13:05 | A.OFFVIS_ITS ---
Vital Signs 07/20/24 13:05 Height 5 ft 6 in Weight 165 lb 6 oz BMI 26.7 BP 120/58 L Blood Pressure Location Rt brachial Position Sitting Pulse 87 Pulse Source Pulse Oximeter Pulse Oximetry (%) 93 Oxygen Delivery Method Room Air Intake Visit Reasons: persistent cough Allergies ciprofloxacin Allergy (Severe, Verified 07/20/24 13:09) CDIFF levofloxacin Allergy (Severe, Verified 07/20/24 13:09) CDIFF moxifloxacin Allergy (Severe, Verified 07/20/24 13:09) CDIFF Penicillins Allergy (Unknown, Verified 07/20/24 13:09) Unknown Clindamycin HCl Allergy (Severe, Uncoded 07/20/24 13:09) CDIFF HPI HPI persistent cough: Details: Nicole is a pleasant 69 year old female followed for bronchiectasis, COPD, mycobacterial disease and pulmonary nodules. Today she presents for a sick visit. At baseline, she is moderately controlled on using her symbicort, albuterol, flonase and hypertonic saline.??She is under the care of Dr. Anthony and presents today for an acute visit. She was recently on a cruise, returned last week with worsening respiratory symptoms. She was presribed doxycyline on 07/11 with improving symptoms and at the last visit on 07/13 prednisone was added. She denies fevers or chills. Unfortunately, she continues to report productive cough with yellow to brown sputum as well as wheezing and chest tightness with associated chills. She has been using symbicort QD, saline nebulizer and albuterol MDI with suboptimal effect. [facility] Medical History (Updated 06/22/22 @ 20:23 by Giovanny Anthony MD) Mycobacterial disease COPD (chronic obstructive pulmonary disease) Bronchiectasis Pulmonary nodules Social History Patient Tobacco Use Status: Former Tobacco user Tobacco use type: Cigarette Cigarette Packs Per Day: 1 Cigarettes Per Day: 20 Years Smoked: 20 years Review of Systems ENT Reports Normal hearing present Neuro Reports Normal hearing present Physical Exam Vital Signs: Last Vital Signs Pulse 87 07/20/24 13:05 BP 120/58 L 07/20/24 13:05 Pulse Ox 93 07/20/24 13:05 Oxygen Delivery Method Room Air 07/20/24 13:05 BMI result Body Mass Index 26.7 Const General: cooperative, comfortable, no acute distress, well developed and alert Orientation/consciousness: patient oriented x3 Limitations: no limitations HEENT Head: Yes normal to inspection, Yes normocephalic and Yes atraumatic Ears: hearing grossly normal bilaterally and external ears normal Eyes General: appearance normal, both eyes and all related structures Eyelids: Yes eyelids normal Sclerae: sclerae normal EOM: EOMs intact bilaterally Neck Neck: Yes normal visual inspection and Yes no lymphadenopathy Lymphatic: no lymphadenopathy noted Chest Chest palpation & inspection: normal inspection of the chest Resp Other: mildly improved with duoneb Effort & Inspection: normal respiratory effort, able to speak in complete sentences, no audible wheezes, Actively coughing, no stridor, not tachypneic, no tripod positioning and no use of accessory muscles Auscultation: rhonchi and wheezes Cardio Jugular venous distension: no JVD Rate: regular rate Rhythm: regular rhythm Skin Other: warm, dry General skin exam: no rashes or lesions noted Neuro General: patient oriented x3 Cranial nerves: Yes Normal hearing present Cognition (Neuro): normal cognition Gait exam (Neuro): Normal gait present Extrem General: Yes normal to inspection, Yes capillary refill normal, Yes no clubbing, cyanosis or edema and Yes no pedal edema Psych Appearance: grossly normal and well kempt Speech and movement: Normal speech and movement present and Clear speech present Affect: normal affect Attitude: cooperative Thought process: Normal thought process present Thought content: Normal thought content present Insight: Good insight present (Psych) Judgement: Good judgement present (Psych) Office Procedures Nebulizer Treatment Nebulizer Treatment Details: gurvinder lot # [id number] exp 12/05/25 [id number]/MDI RX initial, or Nebulizer Subsequent Treatment Assessment & Plan Assessment & Plan (1) COPD (chronic obstructive pulmonary disease): Code(s): J44.9 - Chronic obstructive pulmonary disease, unspecified Category: Medical Qualifiers: COPD type: chronic bronchitis Chronic bronchitis type: mixed simple and mucopurulent Qualified Code(s): J41.8 - Mixed simple and mucopurulent chronic bronchitis (2) Bronchiectasis: Code(s): J47.9 - Bronchiectasis, uncomplicated Category: Medical Qualifiers: Bronchiectasis type: uncomplicated Qualified Code(s): J47.9 - Bronchiectasis, uncomplicated (3) Pulmonary nodules: Code(s): R91.8 - Other nonspecific abnormal finding of lung field Category: Medical Plan Nicole reports minimal improvement on prednisone and doxycyline, continues with productive cough, rhonchi and expiratory wheezing. Will send cefpodoxime, patient's chart noted PCN allergy however patient does not note any allergic reaction or anaphylaxis to PCN in the past. Will also send cough syrup with codeine, patient tolerated before, side effects reviewed. She is aware to call if symptoms do not improve and seek emergent care if symptoms worsen. If no improvement with medications, will send for CXR. All questions were answered and patient is in agreement of plan. Will follow up for regularly scheduled appointment with Dr. Anthony or sooner if needed. Medications: New cefpodoxime must administer with a meal/food 200 mg PO BID 20 tabs 0RF prednisone see taper instructions; 40 mg Daily x3 days, 30 mg daily x3 days, 20 mg daily x3 days, 10 mg daily x3 days 10 mg PO DIRECTED 30 tabs 0RF ipratropium-albuterol 0.5 mg-3 mg(2.5 mg base)/3 mL 3 mL inhalation BID PRN 90 mL 0RF wheezing codeine-guaifenesin 10-100 mg/5 mL 10 mL PO BEDTIME PRN 120 mL 0RF cough Coding Level of Care Code Est Pt Level 4 (72334) Diagnoses Mixed simple and mucopurulent chronic bronchitis J41.8 COPD type: chronic bronchitis Chronic bronchitis type: mixed simple and mucopurulent Bronchiectasis without complication J47.9 Bronchiectasis type: uncomplicated Pulmonary nodules R91.8 CPT Codes Nebulizer Treatment - Nebulizer Treatment, initial or subsequent: 69932- Nebulizer/MDI RX initial, or Nebulizer Subsequent Treatment ([id number])
== END 2024-07-20 13:40 | disposition home or self-care (01) ==
PROVIDERS: PCP Student in an Organized Health Care Education/Training Program; Visit Provider Nurse Practitioner Family
DX: J41.8 Mixed simple and mucopurulent chronic bronchitis (principal); J47.9 Bronchiectasis, uncomplicated; R91.8 Other nonspecific abnormal finding of lung field
CPT/HCPCS: 99214

== ENCOUNTER → 2024-07-20 13:01 | Outpatient (BNVA) | payer MEDICARE, BC, SELFPAY | PROVIDERS: PCP Student in an Organized Health Care Education/Training Program; Visit Provider Nurse Practitioner Family | DX: J41.8 Mixed simple and mucopurulent chronic bronchitis (principal); J47.9 Bronchiectasis, uncomplicated; R91.8 Other nonspecific abnormal finding of lung field | CPT/HCPCS: 94640; 99212 ==

== ENCOUNTER 2024-07-22 14:15 | Outpatient (REF) | payer MEDICARE, BC, SELFPAY ==
--- NOTE | ~2024-07-22 | XR_ITS ---
EXAMINATION: XR CHEST CLINICAL INFORMATION: Cough. COMPARISON: Most recent CT chest dated 06/09/2024. TECHNIQUE: 2 views of the chest were obtained. FINDINGS: The lungs are clear. The cardiomediastinal silhouette is normal in size. There is no pleural effusion or pneumothorax. No acute osseous abnormality. XR/XR chest 2V IMPRESSION: No acute cardiopulmonary findings. Electronically signed by: Chato Damon MD 07/22/2024 03:50 PM [facility]
== END 2024-07-22 14:16 | disposition home or self-care (01) ==
LOC: HO.XRAY 14:15
PROVIDERS: Visit Provider Nurse Practitioner Family
DX: R05.9 Cough, unspecified (principal)
CPT/HCPCS: 71046

== ENCOUNTER 2025-06-14 12:50 | Outpatient (REF) | payer MEDICARE, BC, SELFPAY ==
--- NOTE | ~2025-06-14 | CT_ITS ---
EXAMINATION: CT CHEST WITHOUT IV CONTRAST INDICATION: R91.8 - Other nonspecific abnormal finding of lung field COMPARISON: Comparison is made with the prior examinations dated 06/09/2024 and 09/12/2022. TECHNIQUE: Helical CT scan of the chest was performed without intravenous contrast. Coronal and sagittal reformatted images were generated and reviewed. This CT exam was performed with one or more of the following dose reduction techniques: automated exposure control, adjustment of the mA and/or kV according to patient size, use of iterative reconstruction technique. DLP: 145 mGy-cm CHEST: THYROID: The thyroid is unremarkable. LUNGS: Again seen are findings of bronchiectasis in the right upper lobe, right middle lobe, and lingula. There is subsegmental atelectasis in the right middle lobe and lingula. Scattered areas of tree-in-bud opacities are again seen bilaterally. There is a 4 mm nodule in the right upper lobe (series 4, image 42) which appears new from the prior study. MEDIASTINUM: There is no mediastinal lymphadenopathy. DEAN: Evaluation of the hilar regions is limited by lack of intravenous contrast material. CARDIOVASCULATURE: The heart is normal in size. There is no pericardial effusion. The thoracic aorta is normal in caliber. DEGREE OF CORONARY CALCIFICATION: mild PLEURA: There is no pleural effusion. No pneumothorax. MAIN AIRWAYS: The mainstem bronchi and proximal branches are patent. AXILLA: There is no axillary lymphadenopathy. BONES AND SOFT TISSUES: Unremarkable UPPER ABDOMEN: Again seen is a probable 6 mm cyst in the left lobe of the liver and a probable 1.4 cm cyst or hemangioma spleen. CT/CT chest wo IV con IMPRESSION: Scattered tree-in-bud opacities bilaterally. Bronchiectasis in the right upper lobe, right middle lobe, and lingula. New 4 mm nodule in the right upper lobe. Six-month follow-up chest CT is recommended. Electronically signed by: Scott Vizcaino MD 06/14/2025 01:28 PM EDT
== END 2025-06-14 12:51 | disposition home or self-care (01) ==
LOC: HO.CT 12:50
PROVIDERS: PCP Student in an Organized Health Care Education/Training Program; Visit Provider Hospitalist
DX: R91.8 Other nonspecific abnormal finding of lung field (principal)
CPT/HCPCS: 71250

== ENCOUNTER → 2025-06-14 12:55 | Outpatient (BNV) | payer MEDICARE, BC, SELFPAY | PROVIDERS: PCP Student in an Organized Health Care Education/Training Program; Visit Provider Radiology Diagnostic Radiology | DX: R91.8 Other nonspecific abnormal finding of lung field (principal) | CPT/HCPCS: 71250 ==

== ENCOUNTER 2025-06-23 10:48 | Outpatient (AMB) | payer MEDICARE, BC, SELFPAY ==
--- OUTSIDE RECORDS SUMMARY | 2015-09-11 01:00 | XMS_ITS | Encounter Summary ---
Author Organization [facility] Address [address] [place] [address] [place] [phone] Phone Care Team Providers Care Civil Drafter Name Role Phone Unavailable Primary Care Provider Unavailabl e Reason for Visit * MRI/CAT Scan - Closed Specialty Diagnoses / Procedures Referred By Contac t Referred To Contact Procedures CT Chest Outside (No Interpretation) Valentina Kumar MD, MPH [address] [place], [place] [id number] Phone: tel: fax: mailto:[email or web address] Referral ID Status Reason Start Date Expiration Date Visits Re quested Visits Authorized [id number] Closed 07/01/2017 07/01/2018 1 1 Encounter Details Date Type Department Care Team (Late st Contact Info) Description 09/11/2015 Hospital Encounter [facility] [address] [place] [address] Valentina Kumar MD, MPH [address] [place] [phone] [email or web address] Social History Tobacco Use Types Packs/Day Years Used Date Smoking Tobacco: Former Cigarettes 1 30 1 972 - 2001 Smokeless Tobacco: Never Education Answer Date Recorded Are you interested in more education? Not on garcia e 01/02/2023 Are you concerned about learning? Not on file 01/02/2023 No 01/02/2023 No 01/02/2023 Digital Access Answer Date Recorded No 02/02/2023 No 02/02/2023 No 02/02/2023 Reliable internet access at home? Not on file 02/02/2023 Device with a working camera? Not on file Comments Unknown Sex and Gender Information Value Date Recorded Sex Assigned at Female 07/15/2021 4:32 PM EST Legal Sex Female 12:42 PM EDT Gender Identity Not on file Sexual Orientation Straight 07/15/2021 4: 32 PM EST documented as of this encounter Plan of Treatment Not on file documented as of this encounter Procedures Procedure Name Priority Date/Time Associated Diagnosis Comments CT CHEST OUTSIDE (NO INTERPRETATION) Routine 09/11/2015 12:00 AM EST documented in this encounter Results * CT Chest Outside (No Interpretation) (09/11/2015 12:00 AM EST) Narrative [facility] [place] - 07/01/2017 10:21 AM EDT This study is for PACS storage only and not for interpretation. us Valentina Kumar MD, MPH IMG OUTSIDE IMAGING W/OUT INTERPRETATION Final Result [facility] documented in this encounter Visit Diagnoses Not on filedocumented in this encounter Additional Source Comments The information contained in this document represents components of the legal health record. It is not the complete legal health record.[facility]
--- OUTSIDE RECORDS SUMMARY | 2016-04-11 | XMS_ITS | Encounter Summary ---
Author Organization [facility] Address [address] [place] [address] [place] [phone] Phone Care Team Providers Care Maintenance Representative Name Role Phone Unavailable Primary Care Provider Unavailabl e Reason for Visit * MRI/CAT Scan - Closed Specialty Diagnoses / Procedures Referred By Contac t Referred To Contact Procedures CT Chest Outside (No Interpretation) Valentina Kumar MD, MPH [address] [place], [place] [address] Phone: tel: fax: mailto:[email or web address] Referral ID Status Reason Start Date Expiration Date Visits Re quested Visits Authorized [id number] Closed 07/01/2017 07/01/2018 1 1 Encounter Details Date Type Department Care Team (Late st Contact Info) Description 04/11/2016 Hospital Encounter [facility] [address] [place] [address] Valentina Kumar MD, MPH [address] [place] [phone] [email or web address] Social History Tobacco Use Types Packs/Day Years [...] Comments CT CHEST OUTSIDE (NO INTERPRETATION) Routine 04/11/2016 12:00 AM EDT documented in this encounter Results * CT Chest Outside (No Interpretation) (04/11/2016 12:00 AM EDT) Narrative [facility] - 07/01/2017 10:21 AM EDT This study is for PACS storage only and not for interpretation. us Valentina Kumar MD, MPH IMG OUTSIDE IMAGING W/OUT INTERPRETATION Final Result [facility] documented in this encounter Visit Diagnoses Not on filedocumented in this encounter Additional Source Comments The information contained in this document represents components of the legal health record. It is not the complete legal health record.[facility]
--- OUTSIDE RECORDS SUMMARY | 2016-10-06 01:00 | XMS_ITS | Encounter Summary ---
Author Organization [facility] Address [address] [place] [address] [place] [phone] Phone Care Team Providers Care Rodding Machine Tender Name Role Phone Unavailable Primary Care Provider Unavailabl e Reason for Visit * MRI/CAT Scan - Closed Specialty Diagnoses / Procedures Referred By Contac t Referred To Contact Procedures CT Chest Outside (No Interpretation) Valentina Kumar MD, MPH [address] [place], [place] [id number] Phone: tel: fax: mailto:[email or web address] Referral ID Status Reason Start Date Expiration Date Visits Re quested Visits Authorized [id number] Closed 06/26/2017 06/26/2018 1 1 Encounter Details Date Type Department Care Team (Late st Contact Info) Description 10/06/2016 Hospital Encounter [facility] [address] [place] [address] Valentina Kumar MD, MPH [address] [place] [phone] [email or web address] Social History Tobacco Use Types Packs/Day Years [...] Comments CT CHEST OUTSIDE (NO INTERPRETATION) Routine 10/06/2016 12:00 AM EST documented in this encounter Results * CT Chest Outside (No Interpretation) (10/06/2016 12:00 AM EST) Narrative [facility] INTERFACES - 06/26/2017 10:03 AM EDT This study is for PACS storage only and not for interpretation. us Valentina Kumar MD, MPH IMG OUTSIDE IMAGING W/OUT INTERPRETATION Final Result [facility] documented in this encounter Visit Diagnoses Not on filedocumented in this encounter Additional Source Comments The information contained in this document represents components of the legal health record. It is not the complete legal health record.[facility]
--- NOTE | 2025-06-23 11:03 | A.OFFVIS_ITS ---
Vital Signs 06/23/25 11:04 Height 5 ft 6 in Weight 158 lb 11.725 oz BMI 25.6 BP 120/60 Blood Pressure Location Lt brachial Position Sitting Pulse 78 Pulse Source Pulse Oximeter Pulse Oximetry (%) 94 Oxygen Delivery Method Room Air Intake Visit Reasons: COPD Food Service Sales Representatives Required: No Accompanied by: Self / Same As Patient Allergies ciprofloxacin Allergy (Severe, Verified 06/23/25 11:08) CDIFF levofloxacin Allergy (Severe, Verified 06/23/25 11:08) CDIFF moxifloxacin Allergy (Severe, Verified 06/23/25 11:08) CDIFF Penicillins Allergy (Unknown, Verified 06/23/25 11:08) Unknown Clindamycin HCl Allergy (Severe, Uncoded 07/20/24 13:09) CDIFF HPI Comments Details: The patient is a 70-year-old woman with a known history of pulmonary nodules, mycobacterium avium complex pulmonary infection in addition to asthma. Apparently she was in her usual state health until recently when she was exposed to sick contact. She started developing worsening respiratory symptoms. She was placed on a 5 day course of prednisone and a Z-Niko. She has felt to have pneumonia at the time. After taking medication she was no better in 1 back to her primary care. At that point the patient was given another course of prednisone x5 days and also doxycycline. Overall she is feeling a little better. Still having issues with shortness of breath and coughing. The mucus is last in amount. On examination she still has wheezing. It's likely she was exposed to respiratory syncytial virus with ongoing bronchiolitis consistent with respiratory symptoms. In the meantime the patient has pulmonary nodules are being followed with yearly CAT scans. Her next CAT scan is to in December of this year. 01/15/2022 the patient is here for a pulmonary follow-up visit. Overall she is doing well. Denies any worsening respiratory symptoms. She has a cough, usually productive after using the nebulizer for CPT, moderate in severity. Denies any fevers or chills or weight loss. The patient did have a recent CT scan of the chest that was personally by me and also compared to her previous CT scan from 2019 done and at different center. It appears that the patient has numerous pulmonary nodules in a lot of them appear to be stable. However, she does have for pulmonary nodules in the right lower lobe that appear to be increasing size now measuring between 4-5 mm in size. The patient is concerned if any of those nodules could be malignant. At this point is likely related to the underlying smoldering infectious process. But, will need to monitor him closely to make sure that they do not increase in size. The patient does have a rescue inhaler available she has not had to use it. She continues on the Symbicort. Will go ahead and follow-up with a CT scan in 8 months. If the patient develops any worsening symptoms prior to that she is to call the office for an earlier evaluation. 06/20/2022 the patient is here for sick visit. She started developing worsening respiratory symptoms the last 4-5 days. She has tested about 6 stent negative for COVID-19. She has complaint of a cough which is productive in nature. Usually yellowish phlegm. The cough is persistent she is having hard time sleeping. To start [id number] cough syrup including Mucinex DM among oth ers without significant relief. Positive sick contacts. The patient has had issues in the past with C diff colitis. Therefore will go ahead with doxycycline to be a good therapy for her likely bacterial bronchitis. 09/23/2022 the patient is here for a pulmonary follow-up visit. The patient has been doing well. She denies any significant shortness of breath or cough. She has been using her nebulizer typically in the morning followed by the flutter valve. Then subsequently after that she takes her Symbicort twice a day. She is wondering if she is taking the Symbicort and the albuterol to close. Therefore, she will take the Symbicort later on during the daytime. The patient did have a CT scan of the chest that we personally reviewed. Appears that he she does have waxing waning nodular densities but overall the pulmonary nodules on the right hemithorax appear to be decreased in size. She does have increased tree-in-bud density likely secondary to her smoldering infection. At this point is no reason to treat her for the mycobacterium avium complex will continue to monitor her closely. Will hold off on additional CT scans unless the patient becomes symptomatic however. 01/13/2024 the patient is here for a pulmonary follow-up visit. Overall the patient has been doing well. She did have a few episodes over the winter when she was became sick and she was evaluated by our office and she was treated effectively for bronchitis. The patient currently is doing better from a respiratory status. She does have a Symbicort inhaler and she also has a Ventolin inhaler which she finds both useful. She has not had to use a nebulizer which is reassuring. She does not have a lot of mucus congestion. She knows to perform the CPT specially if she is congested to minimize mucus plugging and to minimize the mycobacterial disease. The patient did have a CT scan back in September 2022 which we personally reviewed demonstrating multiple subcentimeter pulmonary nodules. The nodules could be related to the mycobacterial disease although he has not 100%. Therefore, will have her return in 6 months with after having a CT scan to review. If the patient develops any worsening symptoms prior to that she will call for an earlier assessment. 06/24/2024 the patient is here for a pulmonary follow-up visit. Overall the patient has been doing well. She has been using her respiratory therapy as prescribed. She continues using the CPT device. Denies any worsening respiratory symptoms. Denies any worsening cough chest congestion. She has not had any chest pain. Denies any night sweats or weight loss or fevers. Overall she is doing good on the current therapy. She did have a CT scan of the chest that I personally reviewed with her. Per the reading there is some areas indeed looked a little bit more involved such as the left upper lobe area where she did have some treating budding. But also noticed that other areas that were involved appear to be little bit more improved. Therefore there is a what seen and waning affect. At this point clinically the patient doing very well and does not need to start any antimicrobial therapy. The patient already was tried in the past and failed due to the developing of the C diff colitis. Therefore this point unless the patient is significantly symptomatic in significant abnormalities on the CT scan will hold off on any therapy. In view of the interval worsening disease in the left upper lobe area with new pulmonary nodules will have to repeat the CT scan in a year's time. Therefore she will c ontinue the current therapy and follow-up in a year with a repeat CT scan. If the patient develops any worsening symptoms prior to that she will call for an earlier assessment. 06/23/2025 the patient is here for pulmonary follow-up visit. She was sick over the winter time. She did have to be seen by us over the winter for sick visit. She did require prednisone or antibiotics. More recently she had another cold and she was having increasing cough. She thought she would need more medicine. She did go to an urgent care where she was given Mucinex. She is feeling better at this time. She is concerned that she is getting more coughs more congestion lately. She did have a recent CT scan of the chest. Although she had been sick when she had that. It demonstrated worsening tree-in-bud suggesting bronchiolitis and also need pulmonary nodules. Will go ahead and repeat a CAT scan again in 6 months because of her significant treating budding pulmonary nodules and bronchiectasis. Indeed she may have active mycobacterial disease. She did not tolerate the antimycobacterial medicine in the past. We can consider inhaled amikacin if indeed she has positive MAC. Will have her get an other sputum. Will have her come back in 6 months after her CAT scan. If she worsens I did send him medications to the pharmacy for her to start. [facility] Medical History (Updated 07/22/24 @ 11:56 by Alanis Farrell NP) Mycobacterial disease COPD (chronic obstructive pulmonary disease) Bronchiectasis Pulmonary nodules Social History Patient Tobacco Use Status: Former Tobacco user Tobacco use type: Cigarette Cigarette Packs Per Day: 1 Cigarettes Per Day: 20 Years Smoked: 20 years Review of Systems Const Denies fatigue and Denies fever(s) ENT Denies change in voice, Denies lip swelling, Denies mouth pain, Reports nasal congestion, Reports nasal discharge and Denies tongue swelling Card Denies chest pain Resp Denies change in phlegm color, Denies chest congestion and Reports cough GI Denies abdominal pain Musc Denies no additional complaints Neuro Denies Neuro-related abnormal movements Psych Denies no additional complaints Endo Denies fatigue Jorge/Lymph Denies easy bleeding and Denies lymphadenopathy Aller/Immun Denies lip swelling and Denies tongue swelling Physical Exam Vital Signs: Last Vital Signs Pulse 78 06/23/25 11:04 BP 120/60 06/23/25 11:04 Pulse Ox 94 06/23/25 11:04 Oxygen Delivery Method Room Air 06/23/25 11:04 BMI result Body Mass Index 25.6 Const General: alert HEENT General nose exam: Abnormal external nose present and Nasal discharge present Eyes Pupils: Equal, round and reactive pupils present Neck Neck: Yes normal visual inspection, Yes full ROM and Yes no lymphadenopathy Chest Chest palpation & inspection: normal inspection of the chest Resp Auscultation: clear to auscultation bilaterally Cardio Rate: regular rate Rhythm: regular rhythm Heart sounds: S1 normal heart sound present and S2 normal heart sound present GI Palpation (GI): Soft to palpation and nontender Auscultation: normal bowel sounds General: Yes no CVA tenderness Back/Spine/Pelvis Back: no CVA tenderness Skin General skin exam: rashes and/or lesions noted Neuro Cranial nerves: Yes Equal, round and reactive pupils present Assessment & Plan Assessment & Plan (1) COPD (chronic obstructive pulmonary disease): Code(s): J44.9 - Chronic obstructive pulmonary disease, unspecified Category: Medical Qualifiers: COPD type: chronic bronchitis Chronic bronchitis type: mixed simple and mucopurulent Qualified Code(s): J41.8 - Mixed simple and mucopurulent chronic bronchitis (2) Bronchiectasis: Code(s): J47.9 - Bronchiectasis, uncomplicated Category: Medical Qualifiers: Bronchiectasis type: uncomplicated Qualified Code(s): J47.9 - Bronchiectasis, uncomplicated (3) Pulmonary nodules: Code(s): R91.8 - Other nonspecific abnormal finding of lung field Category: Medical (4) Mycobacterial disease: Code(s): A31.9 - Mycobacterial infection, unspecified Category: Medical Plan Continue Symbicort continue CPT with hypertonic saline via nebulizer followed by Acapella valve Use short-acting beta agonist before hypertonic saline sputum AFB/cx CT chest in 6 months Follow-up in 12 months Orders: Orders Sputum Cult + Gram stain 06/23/25 R91.1 - Solitary pulmonary nodule CT chest wo IV con 6 Months R91.8 - Other nonspecific abnormal finding of lung field Acid-fast Culture + Smear 06/23/25 R91.1 - Solitary pulmonary nodule Medications: New doxycycline monohydrate 100 mg PO BID 28 tabs 0RF 14 days prednisone PO daily; Take 2 tabs daily x 5 days, then 1 tablet daily x 5 days 15 tabs 0RF 10 days Coding Level of Care Code Est Pt Level 4 (03380) Complex EM visit Add On G2211 Diagnoses Mixed simple and mucopurulent chronic bronchitis J41.8 COPD type: chronic bronchitis Chronic bronchitis type: mixed simple and mucopurulent Bronchiectasis without complication J47.9 Bronchiectasis type: uncomplicated Pulmonary nodules R91.8 Mycobacterial disease A31.9 Time Spent (min) 18
[2025-06-23 11:04] VITALS: BP 120/60; PULSE 78; O2SAT 94; BMI 25.6
--- OUTSIDE RECORDS SUMMARY | 2025-06-23 13:19 | XMS_ITS | Clinical Summary ---
Author Organization [facility] Address [address] [place] [address] Care Team Providers Care Music Typographer Name Role Phone Pcp, No Primary Care Provider Unavailabl e Allergies Active Allergy Reactions Criticality Noted Date Comments Ciprofloxacin Hives Medium 06/30/2017 Clindamycin Hives Medium 06/30/2017 Levofloxacin Hives Medium 06/30/2017 Moxifloxacin Hives Medium 06/30/2017 Medications calcium carbonate (OS-KIERSTEN) 1250 (500 Ca) MG chewable tablet Chew 1 tablet daily. Active BUDESONIDE IN Inhale 2 puffs 2 (two) times a day. Active albuterol (PROVENTIL HFA; VENTOLIN HFA) 108 (90 Base) MCG/ACT inhaler INHALE 2 PUFFS EVERY 6 HOURS NEEDED FOR SHORTNESS OF BREATH / WHEEZING 3 Active ascorbic acid (VITAMIN C) 500 MG tablet Take 1,000 mg by mouth. Active aspirin enteric coated (ECOTRIN LOW STRENGTH) 81 MG EC tablet Take 81 mg by mouth. Active atorvastatin (LIPITOR) 80 MG tablet Take 1 tablet by mouth daily. Active Cholecalciferol (D2000 Ultra Strength) 2000 UNITS Cap capsule Take 2,000 Units by mouth. Active diphenhydrAMINE -acetaminophen (TYLENOL PM) 25-500 MG Tab Take 1 tablet by mouth nightly as needed. Active Multiple Vitamin (multivitamin) capsule Take 1 capsule by mouth. Active fluticasone (FloNASE) 50 mcg/spray nasal spray SHAKE LIQUID AND USE 2 SPRAYS IN EACH NOSTRIL DAILY Active omega-3 fatty acids 1000 MG Cap capsule Take 1 capsule by mouth daily. Active OMEprazole (PriLOSEC) 40 MG capsule Take 1 capsule by mouth daily. Active propranolol (INDERAL LA) 80 MG 24 hr capsule Take 80 mg by mouth. Active sodium chloride (HYPERTONIC SALINE) 3 % nebulizer solution INHALE 4ML TWICE DAILY 3 Active methylPREDNISol one (MEDROL DOSEPAK) 4 MG tabletIndicatio ns:Acute viral sinusitis follow package directions 21 tablet 3 Active Active Problems Problem Noted Date Diagnosed Date Chronic obstructive pulmonary disease 07/27/2017 08/22/2023 Gastroesophageal reflux disease without esophagi tis 07/19/2017 08/22/2023 Social History Tobacco Use Types Packs/Day Years Used Date Smoking Tobacco: Never Smokeless Tobacco: Never Alcohol Use Standard Drinks/Week Comments Yes 0 (1 standard drink = 0.6 oz pur e alcohol) Comments Unknown Sex and Gender Information Value Date Recorded Sex Assigned at Not on file Legal Sex Female 11:02 AM EST Gender Identity Not on file Sexual Orientation Not on file Last Filed Vital Signs Vital Sign Reading Time Taken Comments Blood Pressure 132/73 08/22/2023 11:18 AM EST Pulse 83 08/22/2023 11:18 AM EST Temperature 36.8 C (98.2 F) 08/22/2023 11:18 AM EST Respiratory Rate 16 08/22/2023 11:18 AM EST Oxygen Saturation 95% 08/22/2023 11:18 AM EST Inhaled Oxygen Concentration - - Weight 72.6 kg (160 lb) 08/22/2023 11:18 AM EST Height 165.1 cm (5' 5 ) 08/22/2023 11:18 AM EST Body Mass Index 26.63 08/22/2023 11:18 AM EST Plan of Treatment Health Maintenance Due Date Last Done Comments Advance Care Planning 1955 Hepatitis C Virus Screening 1954 DTaP/Tdap/Td Vaccines (1 - Tdap) 1973 Pneumococcal Vaccines 50+ (1 of 2 - PCV) 1973 Mammogram 1994 Colonoscopy 1999 RSV Vaccine 50 years and older and Patients (1 - Risk 50-74 years 1-dose series) 2004 Zoster (Shingles) Vaccine (1 of 2) 2004 DXA Bone Density (Females,Ages 65 and older) 2019 Influenza Vaccine 04/07/2025 06/11/2021, , 06/14/2019, Additional history exists COVID-19 Vaccine (2 - 2025- season) 2025 11/20/2020 Hepatitis B Vaccines Aged Out No long er eligible based on patient's age to complete this topic Insurance MEDICARE PART A & B [facility] Care Teams Music Typographer Relationship Specialty Start Date End Date Pcp, No PCP - General General Medicine 08/22/23
--- OUTSIDE RECORDS SUMMARY | 2025-06-23 13:19 | XMS_ITS | Encounter Summary ---
Author Organization [facility] Address [address] [place] [phone] Phone Care Team Providers Care Manager Event Name Role Phone Genet Hollis MD Primary Care Provider Giovanny Anthony MD Unavailable [phone] Encounter Details Date Type Department Care Team (Late st Contact Info) Description 02/18/2018 Procedure Pass [facility] General Imaging [address] [place] [address] Social History Tobacco Use Types Packs/Day Years Used Date Smoking Tobacco: Former Cigarettes 1 30 1 972 - 2001 Smokeless Tobacco: Never Comments Unknown Sex and Gender Information Value Date Recorded Sex Assigned at Female 07/15/2021 4:32 PM EST Legal Sex Female 12:42 PM EDT Gender Identity Not on file Sexual Orientation Straight 07/15/2021 4: 32 PM EST documented as of this encounter Plan of Treatment Not on file documented as of this encounter Visit Diagnoses Not on filedocumented in this encounter Care Teams Manager Event Relationship Specialty Start Date End Date Genet Hollis MD [address] [place] [id number] PCP - General Internal Medicine 07/19/17 Giovanny Anthony MD [address] [place] [address] [place] [id number] Consulting Provider Pulmonary Disease 12/20/18 documented as of this encounter Additional Source Comments The information contained in this document represents components of the legal health record. It is not the complete legal health record.[facility]
--- OUTSIDE RECORDS SUMMARY | 2025-06-23 13:19 | XMS_ITS | Encounter Summary ---
Author Organization [facility] Address [address] [place] [phone] Phone Care Team Providers Care Tube Building Machine Operator Name Role Phone Genet Hollis MD Primary Care Provider Giovanny Anthony MD Unavailable [phone] Encounter Details Date Type Department Care Team (Late st Contact Info) Description 06/05/2020 Procedure Pass [facility] [address] [facility] [place] [address] Social History Tobacco Use Types Packs/Day Years [...] on filedocumented in this encounter Care Teams Tube Building Machine Operator Relationship Specialty Start Date End Date Genet Hollis MD [address] [place] [phone] PCP - General Internal Medicine 07/19/17 Giovanny Anthony MD [address] [place] [address] [place] [id number] Consulting Provider Pulmonary Disease 12/20/18 documented as of this encounter Additional Source Comments The information contained in this document represents components of the legal health record. It is not the complete legal health record.[facility]
--- OUTSIDE RECORDS SUMMARY | 2025-06-23 13:19 | XMS_ITS | Clinical Summary ---
Author Organization [facility] Address [facility] [address] [address] Phone Care Team Providers Care Schedule Maker Name Role Phone Genet Hollis MD Primary Care Provider Giovanny Anthony MD Unavailable [phone] Allergies Active Allergy Reactions Criticality Noted Date Comments Ciprofloxacin Hives 06/30/2017 Clindamycin Hcl Hives 06/30/2017 Levofloxacin Hives 06/30/2017 Moxifloxacin Hives 06/30/2017 Medications atorvastatin (LIPITOR) 80 MG tablet Take 80 mg by mouth daily. Active propranolol (INDERAL LA) 80 mg 24 hr capsule Take 80 mg by mouth daily. Active multivitamins capsule Take 1 capsule by mouth daily. Active omega 6-txf-dii-fish oil 1,000 mg (120 mg-180 mg) Cap Take 1 capsule by mouth daily. Active calcium carbonate (OS-KIERSTEN) 1,250 mg (500 mg elemental) tablet Take 1 tablet by mouth daily. Active cholecalciferol (VITAMIN D3) 2,000 unit capsule Take 2,000 Units by mouth daily. Active ascorbic acid, vitamin C, (VITAMIN C) 500 MG tablet Take 1,000 mg by mouth daily. Active diphenhydrAMINE -acetaminophen (TYLENOL PM) 25-500 mg Tab Take 1 tablet by mouth nightly as needed. Active omeprazole (PRILOSEC) 40 MG capsule Take 40 mg by mouth daily. Active sodium chloride 3 % nebulizer solution 4 ML INHALATION TWICE DAILY FOR 30 DAYS 1 Active albuterol 90 mcg/actuation inhaler INHALE 2 PUFFS EVERY 6 HOURS NEEDED FOR SHORTNESS OF BREATH OR WHEEZING FOR 30 DAYS 1 Active budesonide-form oterol (SYMBICORT) 160-4.5 mcg/actuation inhaler Inhale 2 puffs into the lungs 2 (two) times a day. 1 Active aspirin 81 MG EC tablet Take 81 mg by mouth daily. Active Active Problems Problem Noted Date Diagnosed Date Bronchiectasis without complication 07/27/2017 Chronic obstructive pulmonary disease 07/27/2017 Hypercholesterolemia 07/19/2017 Gastroesophageal reflux disease without esophagi tis 07/19/2017 Mycobacterium avium complex 06/30/2017 Overview (02/08/2020): Mycobacterium avium complex first isolated 2015 on BAL at outside institution. Isolated here in early 2017 x 3 specimens. Symptoms: dry cough, some SOB, has COPD Airway clearance: Accapella device. Prior treatment: azithromycin, ethambutol and rifampin x 1.5 months in 2015, stopped due to C diff. PFTs: Not available. CT scan 12/2017 with typical findings. Repeat completed 01/2020, slightly worse, will monitor. Assessment & Plan (02/08/2020 3:38 PM EDT): 64 y.o. woman with Mycobacterium avium complex. She is currently stable, with minimal symptoms. I encouraged her continue to do airway clearance twice daily. I asked her to call if she worsens or has hemoptysis. Chest CT is slightly worse, but given her lack of symptoms and history of C diff with therapy, I think it is okay to continue to monitor. I will have her follow-up with me in [address] of the chest and induced sputum. 1. Continue airway clearance twice daily 2. Since she is stable, can plan on CT chest and induced sputum in 1 year, unless CT chest looks far worse. 3. Let us know if any hemoptysis or prolonged cough, fatigue, sob, weight loss. 4. Follow-up in 1 year Assessment & Plan (12/20/2018 2:34 PM EDT): 63 y.o. woman with Mycobacterium avium complex. She is currently stable, with minimal symptoms. I encouraged her continue to do airway clearance twice daily. I asked her to call if she worsens or has hemoptysis. I will have her follow-up with me in [address] of the chest and induced sputum. 1. Continue airway clearance twice daily 2. Will confirm that she has had PFTs with her billet bed operator 3. Since she is stable, can do CT chest and induced sputum in 1 year. 4. Let us know if any hemoptysis or prolonged cough, fatigue, sob, weight loss. 5. Follow-up in 1 year Assessment & Plan (06/27/2018 11:29 PM EDT): 63 y.o. woman with Mycobacterium avium complex. She is currently stable. I think her symptoms are more related to her COPD then to MAC. I encouraged her to try to do airway clearance twice daily as well increase her exercise. I asked her to call if she worsens or has hemoptysis. I will have her follow-up with me in 12/[address] of the chest and induced sputum. I will reach out to her billet bed operator about getting a copy of her PFTs. 1. Increase airway clearance to twice daily 2. CT chest and induced sputum in 12/2018 when she comes in for follow-up 3. Let us know if any hemoptysis or prolonged cough, fatigue, sob, weight loss. Assessment & Plan (07/27/2017 9:56 PM EST): 62 y.o. woman with Mycobacterium avium complex. Seems that her underlying symptoms seem more related to COPD then to the MAC. We could treat her in the future should we need to and watch for C diff signs and symptoms as well as try some kefir to help prevent diarrhea. We may also want to get her started on reflux medications regularly as well since MAC can be related to that. 1. Induced sputum x 3 for gram stain/culture, AFB smear/culture, fungal smear and culture 2. Please send a positive MAC culture to [facility] for extended susceptibility testing including azithromycin, ethambutol, rifampin, moxifloxacin, amikacin, clofazimine and synergy testing with ethambutol+rifampin 3. ANCA, CD4, SPEP, and [id number] testing sent today which were all negative/normal 4. Will need Hepatitis B, C serologies prior to starting hepatotoxic drugs. 5. Yearly PFTs and CT scan to assess for progression 6. Referral to chest PT for airway clearance 7. Follow-up in December 13. Medical release singed to get imaging, PFTs and records. Immunizations Immunization Administration Dates Next Due COVID-19 (Pre-06/29) Pfizer Vaccine, mRNA, PF 11/20/2020 INFLUENZA, SPLIT VIRUS, TRIVALENT PF 06/05/2015 Influenza High-Dose Quadriva lent Preservative Free IM 06/11/2021 Influenza Quadrivalent Preservative Free IM 04/2019,06/26/2018,07/01/2016 Influenza, Unspecified Formulation 06/29/2017 Pneumococcal conjugate PCV13 08/12/2019 Pneumococcal polysaccharide PPSV23 09/24/2020 Tdap 03/07/2012 Zoster live 08/05/2012 Family History Medical History Relation Comments Heart attack Father at 56 Other Mother at 62 of re nal failure from an infection Relation Status Comments Father Mother Social History Tobacco Use Types Packs/Day Years [...] Orientation Straight 07/15/2021 4: 32 PM EST Last Filed Vital Signs Vital Sign Reading Time Taken Comments Blood Pressure 131/83 01/08/2021 11:11 AM EDT Pulse 71 01/08/2021 11:11 AM EDT Temperature 36.8 C (98.3 F) 01/08/2021 11:11 AM EDT Respiratory Rate - - Oxygen Saturation 98% 01/08/2021 11:11 AM EDT Inhaled Oxygen Concentration - - Weight 78 kg (172 lb) 12/16/2018 11:24 AM EDT Height - - Body Mass Index - - Plan of Treatment Health Maintenance Due Date Last Done Comments LIPID PANEL 1954 DEPRESSION SCREENING 1966 SMOKING Hx and SMOKELESS TOBACCO SCREENING 1967 HEPATITIS C SCREENING 1972 MAMMOGRAM 1994 COLOGUARD 1999 COLONOSCOPY 1999 COLORECTAL CANCER SCREENING 1999 FIT TEST 1999 FOBT 1999 SIGMOIDOSCOPY 1999 VIRTUAL COLONOSCOPY 1999 RSV VACCINE (1 - Risk 50-74 years 1-dose series) 2004 ZOSTER VACCINES (2 of 3) 09/30/2012 08/05/2012 OSTEOPOROSIS SCREENING INITIAL (ONE-TIME) 2019 Adult Td,Tdap Booster 03/07/2022 03/07/2012 INFLUENZA VACCINE (#1) 2025 , 06/14/2019, 06/26/2018, Additional history exists COVID-19 VACCINE ( season) 2025 07/25/2021, 06/21/2021, 12/12/2020, Additional history exists PNEUMOCOCCAL VACCINES (50+ years) Completed 09/24/2020, 08/12/2019 HEPATITIS A VACCINES Aged Out No long er eligible based on patient's age to complete this topic HIB VACCINES Aged Out No longer eligi ble based on patient's age to complete this topic MENINGOCOCCAL VACCINES (ACWY) Aged Out No longer eligible based on patient's age to complete this topic MENINGOCOCCAL VACCINES (B) Aged Out N o longer eligible based on patient's age to complete this topic Medical Devices Not on file Insurance [facility] FEDERAL MEDICARE PART A & B [facility] PART A & B [facility] MEDICARE PART A & [place] [address] [place] [address] MEDICARE PART A & B [facility] MEDICARE PART A & B [facility] MEDICARE PART A & B [facility] MEDICARE PART A & B [facility] MEDICARE PART A & B [facility] MEDICARE PART A & B Care Teams Schedule Maker Relationship Specialty Start Date End Date Genet Hollis MD [address] [place] [id number] PCP - General Internal Medicine 07/19/17 Giovanny Anthony MD [address] [place] [address] [place] [id number] Consulting Provider Pulmonary Disease 12/20/18 Additional Source Comments The information contained in this document represents components of the legal health record. It is not the complete legal health record.[facility]
--- OUTSIDE RECORDS SUMMARY | 2025-06-23 13:19 | XMS_ITS | Clinical Summary ---
Author Organization [facility] Address [address] [place] [address] Care Team Providers Care Coil Maker Name Role Phone Unavailable Primary Care Provider Unavailabl e Medications No known medications Social History Tobacco Use Types Packs/Day Years Used Date Smoking Tobacco: Never Assessed Sex and Gender Information Value Date Recorded Sex Assigned at Not on file Gender Identity Not on file Sexual Orientation Not on file Job Start Date Occupation Industry Not on file Not on file Not on file Plan of Treatment Health Maintenance Due Date Last Done Comments Hepatitis C Screening 1955 Depression Screening 1966 Preventative Health Evaluation 1972 Colon Cancer Screening (Colonoscopy) 1999 Breast Cancer Screening (Mammogram) 2004 Shingrix-Zoster Vaccine (1 o f 2) 2004 Fall Risk Assessment 2019 Osteoporosis Screening (DEXA Scan) 2019 DTap / Tdap / Td (2 - Td or Tdap) 03/07/2022 03/07/2012 COVID-19 Vaccine (2 - 2024-2 6 season) 2025 11/20/2020 Influenza Vaccine (#1) 2025 9, 06/26/2018, 07/01/2016 RSV Adult > 60+ Yrs or (1 - 1-dose 75+ series) 2029 Pneumococcal Vaccine Completed 09/24/2020, 08/12/2019 Hepatitis B Vaccines Aged Out No long er eligible based on patient's age to complete this topic RSV Ped < 20 months Aged Out No longe r eligible based on patient's age to complete this topic Nicole Wallace Personal/Family Self 1955 [address] [place] [address]
--- OUTSIDE RECORDS SUMMARY | 2025-06-23 13:19 | XMS_ITS | Clinical Summary ---
Author Organization [facility] [address] [facility] [address] Address [address] [place] [address] Phone Care Team Providers Care Care Process Manager Name Role Phone Phyllis Stephenson MD Primary Care Provider Allergies Active Allergy Reactions Criticality Noted Date Comments Ciprofloxacin 08/14/2016 Told by ID not to use because of high risk CDiff Clindamycin 08/14/2016 Told by ID not to use because of high risk CDiff Levofloxacin 08/14/2016 Told by ID not to use because of high risk CDiff Moxifloxacin 08/14/2016 Told by ID not to use because of high risk CDiff Penicillins 08/11/2023 unknown Medications aspirin 81 mg EC tablet Take 81 mg by mouth daily. Active sodium chloride 3 % nebulizer solution 4 ML INHALATION TWICE DAILY FOR 30 DAYS 07/04/20 21 Active multivitamin (MULTIPLE VITAMINS ORAL) MULTIPLE VITAMIN (MULTIVITAMIN) CAPSULE : Take 1 capsule by mouth. - Oral Active calcium carbonate (OS-KIERSTEN) 1,250 mg (500 mg elemental calcium) tablet Take 1 tablet by mouth. Active budesonide-for moteroL (SYMBICORT) 160-4.5 mcg/actuation inhaler INHALE 2 PUFFS BY MOUTH TWICE DAILY 05/29/20 21 Active ASCORBIC ACID, VITAMIN C, ORAL Take by mouth. Activ e albuterol HFA (PROAIR HFA ; PROVENTIL HFA ; VENTOLIN HFA) 90 mcg/actuation inhaler Inhale 2 Puffs into the lungs 4 times daily as needed for Cough, Wheezing or Shortness of Breath. 09/03/20 Active omega-3 acid ethyl esters (LOVAZA) 1 gram capsule Take by mouth. Ac tive LORazepam (ATIVAN) 0.5 mg tabletIndicati ons:Anxiety with flying Take 1 Tablet by mouth daily as needed for Anxiety related to flying 20 tablet 10/28/19 25 Active cholecalcifero l (VITAMIN D-3) 50 mcg (2,000 unit) capsule Take 1 capsule (2,000 Units total) by mouth 1 (one) time each day. Active fluticasone propionate (FLONASE) 50 mcg/actuation nasal spray Administer 2 sprays into each nostril 1 (one) time each day. Shake liquid 48 g 1 01/21/20 Active GENERIC EXTERNAL MEDICATION Prevagen Active triamcinolone (KENALOG) 0.1 % creamIndicatio ns:Dermatitis Apply to affected areas twice daily for up to two weeks. 80 g 05/10/20 25 2024 Active Additional Information Patient not taking.Reported on 06/02/2025 guaiFENesin (Mucinex) 600 mg 12 hr tabletIndicati ons:Viral upper respiratory tract infection Take 2 tablets (1,200 mg total) by mouth 2 (two) times a day. Do not crush, chew, or split. 120 each 11 06/02/20 25 2025 Active ipratropium-al buteroL (DUONEB) 0.5-2.5 mg/3 mL nebulizer solutionIndica tions:Viral upper respiratory tract infection Take 3 mL by nebulization 3 (three) times a day. 270 mL 1 06/02/20 25 2024 Active propranolol LA (INDERAL LA) 80 mg 24 hr capsule TAKE 1 CAPSULE(80 MG) BY MOUTH AT BEDTIME. DO NOT CRUSH, CHEW, OR SPLIT 90 capsule 06/13/20 25 Active omeprazole (PriLOSEC) [address] capsule TAKE 1 CAPSULE BY MOUTH DAILY 90 capsule 06/15/20 25 Active atorvastatin (LIPITOR) 80 mg tablet TAKE 1 TABLET BY MOUTH DAILY 90 tablet 06/15/20 25 Active ipratropium-al buteroL (DUONEB) 0.5-2.5 mg/3 mL nebulizer solution 09/09/192024 Discontinued(R eorder) omeprazole (PriLOSEC) [address] capsule TAKE 1 CAPSULE BY MOUTH DAILY 90 capsule 03/15/20 25 2024 Discontinued atorvastatin (LIPITOR) 80 mg tablet TAKE 1 TABLET BY MOUTH DAILY 90 tablet 03/15/20 25 2024 Discontinued propranolol LA (INDERAL LA) 80 mg 24 hr capsule TAKE 1 CAPSULE(80 MG) BY MOUTH AT BEDTIME. DO NOT CRUSH, CHEW, OR SPLIT 90 capsule 04/06/202024 Discontinued Active Problems Problem Noted Date Diagnosed Date Other chest pain 06/20/2024 Overview (06/20/2024): Last Assessment & Plan: As I have noted this patient does have a history of chest pain since July. Exact etiology is not clear. It is never exertionally related. She did have 2 stress test and when she had her stress test she did have any chest discomfort with a stress test. Esophageal dysmotility 06/20/2024 Dysphagia 06/20/2024 Anxiety 10/14/2023 Coronary artery disease 10/06/2022 Overview (06/20/2024): Last Assessment & Plan: Evonne has coronary disease based off stress testing. Having any ischemic symptoms. She will continue aspirin, propranolol, and high intensity statin therapy. We did discuss her lipids. We did discuss that her LDL should be less than 70 given coronary disease. This is currently at 122. She is going to recheck her lipids and if her LDL remains greater than 70 would consider adding Zetia 10 mg daily to her regimen. Low-fat and low-salt diet will also help improve triglycerides. Daily low impact exercise recommended. If she has any chest pain or chest discomfort lasting 15 minutes or longer she should seek urgent medical attention which we discussed at length. Shortness of breath on exertion 12/04/2021 Overview (06/20/2024): Last Assessment & Plan: She does get short of breath with exertion I think her shortness of breath may be an ischemic equivalent. She did have a regular treadmill stress test In September she had exercised for 6 minutes 25 seconds 89% of her predicted rate. She had no chest pain but did have shortness of breath. She did have some ECG changes consistent with ischemia. Subsequent that she did have a stress echocardiogram in October. She did exercised for 7 minutes of a Cortez protocol exercise stress test to a heart rate of 141 which is 92% of the maximum predicted heart rate. She did have ischemic EKG changes. Her echocardiogram at rest was normal with exercise she appeared to have ischemia of the mid to basal anterior lateral wall, mid and basal anterior wall and mid basal inferior wall. I did review the stress test findings with her I did tell her I felt her symptoms of shortness of breath may be ischemic equivalent. This time she appears to have stable symptoms. I did discuss whether we continue medical therapy or proceed with an intervention. I did explain to her this was in part related to how she was doing as I noted she appears to be stable at this time. In fact she does feel little bit better. This time we will continue medical therapy but I did tell her she had a change in the way she felt with activity, that I described to her to call. I did tell her she had a discomfort in her chest that lasted for 15 minutes to call 911. Essential hypertension 12/04/2021 Overview (06/20/2024): Last Assessment & Plan: 120/60 in office today, well-controlled. Continue regimen as above. Assessment & Plan (10/28/2024 4:13 PM EST): BP well controlled on propranolol. Orders: Comprehensive metabolic panel; Future Positive cardiac stress test 12/02/2021 Bronchiectasis ([facility] V24, [facility] V28) 2020 Assessment & Plan (10/28/2024 4:13 PM EST): Doing well on current inhalers. [facility]. Orders: Comprehensive metabolic panel; Future Asthma, moderate persistent 06/03/2020 Overview (06/20/2024): Sees pulm Pulmonary nodules 11/19/2017 Actinic keratoses 11/17/2017 Chronic obstructive pulmonar y disease (COPD) ([facility] V24, [facility] V28) 11/03/2017 Mycobacterium avium-intracel lulare complex ([facility] V24, [facility] V28) 06/20/2016 Overview (06/20/2024): Sees Dr Anthony at [facility]. Latest CT as of 04/2016 showed progression. Started on azithro and rifampin ethambutol Hiatal hernia 06/20/2016 Overview (06/20/2024): On EGD by Dr Bhat GERD (gastroesophageal reflux disease) 4 Overview (06/20/2024): Had GI eval and EGD. Hypercholesterolemia 08/15/2014 Overview (06/20/2024): Last Assessment & Plan: Last lipid panel from February 2022. Total cholesterol 205, triglycerides 194, HDL 45, LDL 122. Continue statin therapy. Repeating lipids as above. Plan as above. Assessment & Plan (10/28/2024 4:13 PM EST): C.w liptor 80mg dialy. Unable to tolerate zetia. Advised to reach out to 's office- [id number] injections Orders: Comprehensive metabolic panel; Future Essential tremor 08/15/2014 Encounters Date Type Department Care Team Description 06/02/2025 11:30 AM EDT Office Visit Adult Medicine [address] [phone] Lexis Al NP Viral upper respiratory tract infection (Primary Dx) 06/02/2025 Telephone Adult Medicine [address] [phone] Phyllis Stephenson MD 05/10/2025 12:30 PM EDT Office Visit Adult [address] [phone] Mahesh Chavez PA Dermatitis (Primary Dx) 04/28/2025 4:00 PM EDT Office Visit Walk-In Clinic - [address] [phone] Juan Chris, EXECUTIVE SECRETARY Contact dermatitis, unspecified contact dermatitis type, unspecified trigger (Primary Dx) 04/28/2025 Telephone Adult [address] [phone] Phyllis Stephenson MD 04/10/2025 9:30 AM EDT Office Visit Adult [address] [phone] Mahesh Chavez PA Chronic obstructive pulmonary disease, unspecified COPD type ([facility] V24, CMS/[facility] V28) (Primary Dx); Bronchiectasis without complication ([facility] V24, [facility] V28); Essential tremor; Gastroesophageal reflux disease, unspecified whether esophagitis present; Essential hypertension; Abnormal sensation of lower extremity 03/24/2025 2:45 PM EDT Office Visit Adult [address] [phone] Mahesh Chavez, PA Abnormal sensation of lower extremity (Primary Dx) from Last 3 Months Immunizations Immunization Administration Dates Next Due Influenza Quadravalent, 0.5m l (Fluad) 65yo and older 05/31/2020 Influenza Quadravalent, 0.5m l (Fluzone High-dose) 65yo and older 07/08/2022,06/11/2021 Influenza Quadrivalent, 0.5m l, preservative free (Fluarix; FluLaval; Fluzone) ages 6mo and older (Afluria) 3yo and older 06/14/2019,06/26/2018,07/01/2016 Influenza Whole 06/05/2015, 4,06/23/2009,07/22,07/24/2007 Influenza trivalent, 0.5mL ( Fluad) 65yo and older 06/19/2023 Influenza trivalent, 0.5mL ( Fluzone High-dose) 65yo and older 05/19/2024,06/19/2023 Influenza trivalent, 0.5mL, preservative free (Fluarix; FluLaval; Fluzone) ages 6mo and older (Afluria) 3 years and older 06/29/2017,06/05/2015 Influenza trivalent, with pr eservative (Fluzone; Afluria) 6mo and older 06/26/2011,05/19/2011,07/27/2010,08/06 Influenza, Unspecified 07/02/2021,2018,06/29/2018,06/29,06/05/2015 PPD Test 07/10/2015 Hyperformix SARS-CoV-2 COVID-19, mRNA, LNP-S, preservative free 12/12/2020,11/20/2020 Pneumococcal conjugate 13 va lent (Prevnar 13, PCV13) 2mo and older 08/12/2019 Pneumococcal conjugate 20 va lent (Prevnar 20, PCV 20) 2mo and older 12/04/2022 Pneumococcal polysaccharide 23 valent (Pneumovax 23) 2yo and older 09/24/2020 RSV, bivalent, protein subun it RSVpreF, 0.5mL, Preservative Free (Arexvy) 50yo and older 08/10/2023 Tdap Tetanus diptheria acell ular pertussis (Boostrix; Adacel) 7yo and older 09/22/2022,03/07/2012,10/30/2010 Zoster Live 08/05/2012 Zoster recombinant (Shingrix ) 19yo and older 07/23/2023,05/05/2023 Surgical History Surgery Date Site/Laterality Comments ESOPHAGOGASTRODUODENOSCOPY 07/16/15 PROCEDURE: WI ESOPHAGOGASTRODUODENOSCOPY TRANSORAL DIAGNOSTIC; COMMENT: normal with nl esophageal biopsies COLONOSCOPY 12/05/14 Rajesh PROCEDURE: HISTORICAL COLONOSCOPY; COMMENT: hemorrhoids; repeat in 10 yrs TUBAL LIGATION 12/12/1991 PROCEDURE: HISTORICAL TUBAL LIGATION CARPAL TUNNEL RELEASE 07/08/1992 - 08/06/1992 Medical History Medical History Date Comments GERD (gastroesophageal reflux disease) 4 DX:GERD (gastroesophageal reflux disease) Hiatal hernia 06/20/2016 DX:Hiatal hernia ; COMMENT: On EGD by Dr Bhat Mycobacterium avium-intracel lulare complex ([facility]/HCC V24, CMS/HCC V28) 06/20/2016 DX:Mycobacterium avium-intracellulare complex ([facility]); COMMENT: Sees Dr Anthony at [facility]. Latest CT as of 04/2016 showed progression. Started on azithro and rifampin ethambutol Bronchiectasis ([facility] V24, [facility] V28) 11/03/2017 DX:Bronchiectasis (HCC) Essential tremor 08/15/2014 DX:Essential tr emor Chronic obstructive pulmonar y disease ([facility] V24, [facility] V28) 11/03/2017 DX:Chronic obstructive pulm onary disease (HCC) History of Clostridium difficile colitis 017 DX:History of Clostridium difficile colitis Hypercholesterolemia 08/15/2014 DX:Hypercho lesterolemia Actinic keratoses 11/17/2017 DX:Actinic ker atoses Asthma, moderate persistent 06/03/2020 DX:A sthma, moderate persistent; COMMENT: Sees pulm Genetic susceptibility to breast cancer DX:Genetic susceptibility to breast cancer Other chest pain DX:Other chest pain Bronchiectasis ([facility] V24, [facility] V28) DX:Bronchiectasis ([facility]) Dysphagia DX:Dysphagia Essential hypertension 12/04/2021 DX:Essent ial hypertension Esophageal dysmotility DX:Esopha geal dysmotility Coronary artery disease 10/06/2022 DX:Coron jarod artery disease Anxiety 10/14/2023 DX:Anxiety Family History Medical History Relation Name Comments Coronary artery disease Brother age 42, needed valve and transplant Asthma Daughter Thyroid disease Daughter Heart attack Father age 52 bladder cancer Other Thyroid disease Sister 1 Breast cancer Sister 2 age 60s Breast cancer Sister 3 age 60s Relation Name Status Comments Brother Daughter Father Other Alive Sister 1 Sister 2 Sister 3 Social History Tobacco Use Types Packs/Day Years Used Date Smoking Tobacco: Former Cigarettes 1 35.2 1 - 09/07/2004 Smokeless Tobacco: Never Tobacco Cessation:Counseling Given: Not Answered Alcohol Use Standard Drinks/Week Comments Yes 14 (1 standard drink = 0.6 oz pu re alcohol) Comments No Sex and Gender Information Value Date Recorded Sex Assigned at Female 01/20/2025 7:11 AM EDT Legal Sex Female 9:37 AM EST Gender Identity Female 01/20/2025 7:11 AM EDT Sexual Orientation Not on file Obstetrics History Para Term AB IAB SAB Ectopic Multiple Livin g Live Births 3 3 Date Outcome GA Total Labor Labor/2nd/3rd Weight Sex Type Anes PTL Rosibel A1 A5 Name Clin Para Para Para Comments vaginal x3 Last Filed Vital Signs Vital Sign Reading Time Taken Comments Blood Pressure 143/70 06/02/2025 11:13 AM EDT Pulse 71 06/02/2025 11:13 AM EDT Temperature 36.8 C (98.3 F) 06/02/2025 11:13 AM EDT Respiratory Rate 14 12/21/2024 2:03 PM EDT Oxygen Saturation 98% 04/28/2025 4:10 PM EDT Inhaled Oxygen Concentration - - Weight 72.6 kg (160 lb) 06/02/2025 11:13 AM EDT Height 165.1 cm (5' 5 ) 06/02/2025 11:13 AM EDT Body Mass Index 26.63 06/02/2025 11:13 AM EDT Plan of Treatment Upcoming Encounters Date Type Department Care Team (Late st Contact Info) Description 08/14/2025 8:40 AM EST Office Visit [facility] [address] [facility] [address] [place] [address] Anup Purdy NP [address] [place] [address] Health Maintenance Due Date Last Done Comments Social Influencers of Health Screening 08/05/2022 Colorectal Cancer Screening: Colonoscopy 12/05/2024 12/05/2014 COVID-19 Vaccine (7 - Pfizer risk 2023- season) 2025 06/07/2024, 07/01/2022, 07/25/2021, Additional history exists Influenza Vaccine (#1) 2025 , 06/19/2023, 06/19/2023, Additional history exists Falls Risk Assessment 10/28/2025 10/28/2024, 023 Hypertension/CHF/CAD Annual BMP Blood Test 10/28/2025 10/28/2024, 05/10/2024, 05/10/2024 Medicare Annual Wellness Visit 10/28/2025 10/28/2024 Breast Cancer Screening 04/29/2026 04/29/2024 Cholesterol Screening (Lipid Panel) 10/28/2029 10/28/2024, 05/10/2024, 05/10/2024 DTaP,Tdap,and Td Vaccines (4 - Td or Tdap) 09/22/2032 09/22/2022, 03/07/2012, 10/30/2010 Osteoporosis Screening (Bone Density Screening) 10/03/2032 10/03/2022, 04/27/2020 Hepatitis C Screening Completed 11/30/2014 Pneumococcal Vaccine: 50+ Years Completed 12/04/2022, 09/24/2020, 08/12/2019 Zoster Vaccines Completed 07/23/2023, 04/08, 08/05/2012 RSV Immunization Adult Patients Completed 08/10/2023 Depression Screening Completed 10/28/2024, 07/22/20 HIB Vaccines Aged Out No longer eligi ble based on patient's age to complete this topic HPV Vaccines Aged Out No longer eligi ble based on patient's age to complete this topic Hepatitis A Vaccines Aged Out No long er eligible based on patient's age to complete this topic Hepatitis B Vaccines Aged Out No long er eligible based on patient's age to complete this topic IPV Vaccines Aged Out No longer eligi ble based on patient's age to complete this topic MMR Vaccines Aged Out No longer eligi ble based on patient's age to complete this topic Meningococcal ACWY Vaccine Aged Out N o longer eligible based on patient's age to complete this topic Meningococcal B Vaccine Aged Out No l onger eligible based on patient's age to complete this topic RSV Immunization Patients Under 20 months Aged Out No longer eligible based on patient's age to complete this topic Varicella Vaccines Aged Out No longer eligible based on patient's age to complete this topic Procedures Procedure Name Priority Date/Time Associated Diagnosis Comments MAGNESIUM Routine 04/10/2025 10:04 AM EDT Abnormal sensation of lower extremity VITAMIN B12 Routine 04/10/2025 10:04 AM EDT Abnormal sensation of lower extremity COMPREHENSIVE METABOLIC PANEL Routine 10/28/2024 4:13 PM EST Medicare annual wellness visit, subsequent Hypercholesterolemia Urge incontinence of urine Bronchiectasis without complication (CMS/HCC V24, [facility] V28) Essential hypertension LIPID PANEL WITH REFLEX TO DIRECT LDL Routine 10/28/2024 4:13 PM EST Hypercholesterolemia MAMMOGRAPHY Routine 04/29/2024 DEPRESSION SCREENING Routine 07/22/2023 FALLS RISK ASSESSMENT Routine 07/22/2023 DXA BONE DENSITY STUDY 1+ SITS AXIAL SKEL Routine 10/03/2022 2:42 PM EST Encounter for screening for osteoporosis COLONOSCOPY Routine 12/05/2014 HEPATITIS C SCREENING Routine 11/30/2014 from Last 3 Months or Most Recently Relevant to Health Maintenance Results * Magnesium (04/10/2025 10:04 AM EDT) Magnesium 2.0 1.9 - 2.6 mg/dL LAB CHEMISTRY METHOD 04/10/2025 1:51 PM EDT [facility] Blood Venous blood specimen / Unknown Venipuncture / Unknown 04/10/2025 10:04 AM EDT 04/10/2025 10:04 AM EDT us Mahesh FUNK LAB BLOOD ORDERABLES Final Re sult [facility] [address] [place] [address], [place] [phone] * Vitamin B12 (04/10/2025 10:04 AM EDT) Vitamin B-12 370 250 - 900 pcg/mL LAB CHEMISTRY METHOD 04/10/2025 2:21 PM EDT [facility] Blood Venous blood specimen / Unknown Venipuncture / Unknown 04/10/2025 10:04 AM EDT 04/10/2025 10:04 AM EDT us Mahesh FUNK LAB BLOOD ORDERABLES Final Re sult [facility] [address] [place] [address], [place] [phone] * (ABNORMAL) Lipid panel with reflex to direct LDL (10/28/2024 4:13 PM EST) Cholesterol 207(H) 0 - 200 mg/dL LAB CHEMISTRY METHOD 10/28/2024 7:21 PM EST [facility] Triglycerides 146 0 - 150 mg/dL LAB CHEMISTRY METHOD 10/28/2024 7:21 PM EST [facility] HDL 55 >=40 mg/dL LAB CHEMISTRY METHOD 10/28/2024 7:21 PM EST [facility] LDL Calculated 123(H) 0 - 100 mg/dL LAB CHEMISTRY METHOD 10/28/2024 7:21 PM EST [facility] VLDL Cholesterol Kiersten 29.2 mg/dL LAB CHEMISTRY METHOD 10/28/2024 7:21 PM EST [facility] Non HDL Chol. (LDL+VLDL) 152(H) <145 mg/dL LAB CHEMISTRY METHOD 10/28/2024 7:21 PM EST [facility] Chol/HDL Ratio 3.8 0.0 - 4.4 LAB CHEMISTRY METHOD 10/28/2024 7:21 PM EST [facility] Blood Venous blood specimen / Unknown Venipuncture / Unknown 10/28/2024 4:13 PM EST 10/28/2024 4:13 PM EST us Darlene FUNK LAB BLOOD ORDERABLES Final Resul t [facility] [address] [place] [address], [place] [phone] * Comprehensive metabolic panel (10/28/2024 4:13 PM EST) Sodium 138 133 - 145 mmol/L LAB CHEMISTRY METHOD 10/28/2024 7:21 PM [facility] Potassium 4.1 3.5 - 5.5 mmol/L LAB CHEMISTRY METHOD 10/28/2024 7:21 PM [facility] Chloride 102 96 - 110 mmol/L LAB CHEMISTRY METHOD 10/28/2024 7:21 PM [facility] CO2 32 21 - 32 mmol/L LAB CHEMISTRY METHOD 10/28/2024 7:21 PM [facility] Anion Gap 4 3 - 11 LAB CHEMISTRY METHOD 10/28/2024 7:21 PM [facility] Glucose 84 70 - 100 mg/dL LAB CHEMISTRY METHOD 10/28/2024 7:21 PM [facility] BUN 14 5 - 25 mg/dL LAB CHEMISTRY METHOD 10/28/2024 7:21 PM [facility] Creatinine 0.59 0.50 - 1.10 mg/dL LAB CHEMISTRY METHOD 10/28/2024 7:21 PM [facility] eGFR 97 >=60 mL/min/1. 73m2 LAB CHEMISTRY METHOD 10/28/2024 7:21 PM [facility] Comment:Calculation based on the Chronic Kidney Disease Epidemiology Collaboration (CKD-EPI) equation refit without adjustment for race. BUN/Creatinine Ratio 23.7 LAB CHEMISTRY METHOD 10/28/2024 7:21 PM [facility] Calcium 9.2 8.5 - 10.5 mg/dL LAB CHEMISTRY METHOD 10/28/2024 7:21 PM [facility] AST (SGOT) 29 10 - 42 unit/L LAB CHEMISTRY METHOD 10/28/2024 7:21 PM [facility] ALT (SGPT) 39 10 - 60 unit/L LAB CHEMISTRY METHOD 10/28/2024 7:21 PM [facility] Alkaline Phosphatase 109 42 - 121 unit/L LAB CHEMISTRY METHOD 10/28/2024 7:21 PM [facility] Total Protein 7.2 6.0 - 8.0 g/dL LAB CHEMISTRY METHOD 10/28/2024 7:21 PM EST [facility] Albumin 4.0 3.2 - 5.0 g/dL LAB CHEMISTRY METHOD 10/28/2024 7:21 PM EST [facility] Total Bilirubin 0.7 0.0 - 1.4 mg/dL LAB CHEMISTRY METHOD 10/28/2024 7:21 PM EST [facility] Blood Venous blood specimen / Unknown Venipuncture / Unknown 10/28/2024 4:13 PM EST 10/28/2024 4:13 PM EST Phyllis Stephenson MD LAB BLOOD ORDERABLES F inal Result [facility] [address] [place] [address], * Mammography (04/29/2024) Mammogram abstract [facility] /sr Anatomical Region Laterality Modality Other Historical Provider HEALTH MAINTENANCE Final Result * Falls Risk Assessment (07/22/2023) [facility] Falls Risk Assessment Abstracted Historical Provider HEALTH MAINTENANCE Final Result * Depression Screening (07/22/2023) Depression Screening Abstracted Historical Provider HEALTH MAINTENANCE Final Result * DXA BONE DENSITY STUDY 1+ SITS AXIAL SKEL (10/03/2022 2:42 PM EST) Anatomical Region Laterality Modality Bone Densitometr y 09/22/2022 10:4 9 AM EST Narrative 10/03/2022 6:07 PM EST BONE DENSITY SCAN (DEXA) FINDINGS: Lumbar Spine T-score is -0.4. (SD relative to 20-29 y/o adult) Z-score is 1.6. (SD relative to age matched peers) This is considered normal by WHO criteria. Left Hip T-score is -0.9. Z-score is 0.8. This is considered normal by WHO criteria. Comparison: 04/27/2020. 3.3% increase in lumbar spine bone mineral density, statistically significant at the 95% confidence level. No statistically significant change in left hip bone mineral density. IMPRESSION: IMPRESSION: Normal bone mineral density by WHO criteria. The [facility] Department of Internal Medicine recommends using National Osteoporosis Foundation (NOF) guidelines in treatment decisions related to osteoporosis. NOF guidelines suggest considering treatment for postmenopausal women and men aged 50 or older presenting with the following: History of hip or vertebral fracture. T-score = -2.5 (DXA) at the femoral neck, total hip, or spine, after appropriate evaluation to exclude secondary causes. Low bone mass (T-score between -1.0 and -2.5 at the femoral neck or spine) AND a 10-year probability of a hip fracture = 3% OR a 10-year probability of a major osteoporosis-related fracture = 20% based on the [place]-adapted WHO algorithm Please note that all treatment decisions require clinical judgment and consideration of individual patient factors, including patient preferences, co-morbidities, previous drug use, risk factors not captured in the FRAX model (e.g., frailty, falls, vitamin D deficiency, increased bone turnover, interval significant decline in bone density) and possible under- or over-estimation of fracture risk by FRAX. Optional alternative screening schedule based on donell Ruiz., [facility] September 25, 2011 for patients with osteopenia (based on hip BMD T-score) is as follows: * advanced osteopenia (T scores -2.00 to -2.49), BMD testing every year * moderate osteopenia (T scores -1.50 to -1.99), BMD testing every 5 years mild osteopenia or normal BMD (T scores -1.50 and higher), BMD testing every 15 years Procedure Note Queenie Case MD - 10/13/2023 BONE DENSITY SCAN (DEXA) FINDINGS: Lumbar Spine T-score is -0.4. (SD relative to 20-29 y/o adult) Z-score is 1.6. (SD relative to age matched peers) This is considered normal by WHO criteria. Left Hip T-score is -0.9. Z-score is 0.8. This is considered normal by WHO criteria. Comparison: 04/27/2020. 3.3% increase in lumbar spine bone mineraldensity, statistically significant at the 95% confidence level. No statistically significantchange in left hip bone mineral density. IMPRESSION: IMPRESSION: Normal bone mineral density by WHO criteria. The [facility] Department of Internal Medicine recommendsusing National Osteoporosis Foundation (NOF) guidelines in treatment decisions related toosteoporosis. NOF guidelines suggest considering treatment for postmenopausal women and menaged 50 or older presenting with the following: History of hip or vertebral fracture. T-score = -2.5 (DXA) at the femoral neck, total hip, or spine, afterappropriate evaluation to exclude secondary causes. Low bone mass (T-score between -1.0 and -2.5 at the femoral neck or spine)AND a 10-year probability of a hip fracture = 3% OR a 10-year probability of a majorosteoporosis-related fracture = 20% based on the [place]-adapted WHO algorithm Please note that all treatment decisions require clinical judgment andconsideration of individual patient factors, including patient preferences, co- morbidities,previous drug use, risk factors not captured in the FRAX model (e.g., frailty, falls, vitaminD deficiency, increased bone turnover, interval significant decline in bone density) andpossible under- or over-estimation of fracture risk by FRAX. Optional alternative screening schedule based on donell Ruiz., NEJMJanuary 2011 for patients with osteopenia (based on hip BMD T-score) is as follows: * advanced osteopenia (T scores -2.00 to -2.49), BMD testing every year * moderate osteopenia (T scores -1.50 to -1.99), BMD testing every 5years mild osteopenia or normal BMD (T scores -1.50 and higher), BMD testingevery 15 years Darlene CAZARES DXA PROCEDURES Final Result * Colonoscopy (12/05/2014) Colonoscopy Abstracted, No interpretation Anatomical Region Laterality Modality Other Historical Provider HEALTH MAINTENANCE Final Result * Hepatitis C Screening (11/30/2014) Hepatitis C Screening Abstracted us Historical Provider HEALTH MAINTENANCE Final Result from Last 3 Months or Most Recently Relevant to Health Maintenance Insurance [facility] MEDICARE Care Teams Care Process Manager Relationship Specialty Start Date End Date Phyllis Stephenson MD [address] [place] [id number] PCP - General 02/19/24
--- OUTSIDE RECORDS SUMMARY | 2025-06-23 13:19 | XMS_ITS | Encounter Summary ---
Author Organization [facility] Address [address] [place] [address] Phone Care Team Providers Care Maintenance And Operations Supervisor Name Role Phone Pcp, Unknown Primary Care Provider Unavailabl e Genet Hollis MD Primary Care Provider Giovanny Anthony MD Unavailable [phone] Encounter Details Date Type Department Care Team (Late st Contact Info) Description 07/01/2017 Procedure Pass [facility] General Imaging [address] [place] [address] Social History Tobacco Use Types Packs/Day Years Used Date Smoking Tobacco: Former Cigarettes 30 1 972 - 2001 Smokeless Tobacco: [...] on filedocumented in this encounter Care Teams Maintenance And Operations Supervisor Relationship Specialty Start Date End Date Pcp, Unknown PCP - General 06/04/17 07/18/17 Genet Hollis MD [address] [place] [id number] PCP - General Internal Medicine 07/19/17 Giovanny Anthony MD [address] [place] [address] [place] [address] Consulting Provider Pulmonary Disease 12/20/18 documented as of this encounter Additional Source Comments The information contained in this document represents components of the legal health record. It is not the complete legal health record.[facility]
--- OUTSIDE RECORDS SUMMARY | 2025-06-23 13:19 | XMS_ITS ---
Author Name [facility] Organization Unknown Results Test Name/Text Value Interpretation Date Range Source Clinical Information Bladder biopsy Normal 10/28/2024 [facility] Citation Ref Lab Test The technical components of this [place] [address] CLIA # [id number] Normal 10/28/2024 [facility] History of Medication Use Medication Directions Dispensed Refills Start Date End Date Stat fluticasone propionate (FLONASE) 50 mcg/actuation nasal spray Administer 2 sprays into each nostril 1 (one) time each day. Shake liquid 01/20/2025 active propranolol LA (INDERAL LA) 80 mg 24 hr capsule TAKE 1 CAPSULE(80 MG) BY MOUTH AT BEDTIME. DO NOT CRUSH, CHEW, OR SPLIT 01/19/2025 active propranoloL (INDERAL) 80 mg tablet Take 1 tablet (80 mg total) by mouth at bedtime. 07/15/2024 aborted propranolol LA (INDERAL LA) 80 mg 24 hr capsule Take 1 capsule (80 mg total) by mouth at bedtime. Do not crush, chew, or split. 07/14/2024 active ezetimibe (ZETIA) 10 mg tablet Take 1 tablet (10 mg total) by mouth. 06/23/2024 active omeprazole (PriLOSEC) [address] capsule TAKE 1 CAPSULE BY MOUTH DAILY 06/16/2024 active atorvastatin (LIPITOR) 80 mg tablet TAKE 1 TABLET BY MOUTH DAILY 04/04/2024 active LORazepam (ATIVAN) 0.5 mg tablet Take 1 Tablet by mouth daily as needed for Anxiety. take 1 tablet by mouth once daily if needed for anxiety for UP TO 20 DOSES 10/14/2023 active loratadine (CLARITIN) 10 mg tablet Take 1 Tablet by mouth daily. 10/06/2023 active methylPREDNISolone (MEDROL DOSEPAK) 4 MG tablet follow package directions 08/22/2023 active sodium chloride (HYPERTONIC SALINE) 3 % nebulizer solution INHALE 4ML TWICE DAILY 08/07/2023 active fluticasone propionate (FLONASE) 50 mcg/actuation nasal spray SHAKE LIQUID AND USE 2 SPRAYS IN EACH NOSTRIL DAILY 07/28/2023 active albuterol (PROVENTIL HFA; VENTOLIN HFA) 108 (90 Base) MCG/ACT inhaler INHALE 2 PUFFS EVERY 6 HOURS NEEDED FOR SHORTNESS OF BREATH / WHEEZING 07/23/2023 active sodium chloride 3 % nebulizer solution 4 ML INHALATION TWICE DAILY FOR 30 DAYS 07/04/2021 active budesonide-formoteroL (SYMBICORT) 160-4.5 mcg/actuation inhaler INHALE 2 PUFFS BY MOUTH TWICE DAILY 05/29/2021 active ipratropium-albuteroL (DUONEB) 0.5-2.5 mg/3 mL nebulizer solution Inhale 3 mL into the lungs once for 1 dose. 09/09/2019 active albuterol HFA (PROAIR HFA ; PROVENTIL HFA ; VENTOLIN HFA) 90 mcg/actuation inhaler Inhale 2 Puffs into the lungs 4 times daily as needed for Cough, Wheezing or Shortness of Breath. 09/03/2019 active ascorbic acid (VITAMIN C) 500 MG tablet Take 1,000 mg by mouth. active ASCORBIC ACID, VITAMIN C, ORAL Take by mouth. active aspirin 81 mg EC tablet Take 81 mg by mouth daily. active aspirin enteric coated (ECOTRIN LOW STRENGTH) 81 MG EC tablet Take 81 mg by mouth. active atorvastatin (LIPITOR) 80 MG tablet Take 1 tablet by mouth daily. active BUDESONIDE IN Inhale 2 puffs 2 (two) times a day. active calcium carbonate (OS-KIERSTEN) 1,250 mg (500 mg elemental calcium) tablet Take 1 tablet by mouth. active calcium carbonate (OS-KIERSTEN) 1250 (500 Ca) MG chewable tablet Chew 1 tablet daily. active Cholecalciferol (D2000 Ultra Strength) 2000 UNITS Cap capsule Take 2,000 Units by mouth. active cholecalciferol (VITAMIN D-3) 50 mcg (2,000 unit) capsule Take 1 capsule (2,000 Units total) by mouth 1 (one) time each day. active diphenhydrAMINE-acetamin ophen (TYLENOL PM) 25-500 MG Tab Take 1 tablet by mouth nightly as needed. active DOCOSAHEXAENOIC ACID ORAL Take 1 capsule by mouth daily. active fluticasone (FloNASE) 50 mcg/spray nasal spray SHAKE LIQUID AND USE 2 SPRAYS IN EACH NOSTRIL DAILY active Multiple Vitamin (multivitamin) capsule Take 1 capsule by mouth. active omega-3 acid ethyl esters (LOVAZA) 1 gram capsule Take by mouth. active omega-3 fatty acids 1000 MG Cap capsule Take 1 capsule by mouth daily. active OMEprazole (PriLOSEC) 40 MG capsule Take 1 capsule by mouth daily. active propranolol (INDERAL LA) 80 MG 24 hr capsule Take 80 mg by mouth. active Allergies Allergen Reaction Severity Comment Documented Date Source Statu s PENICILLINS unknown 08/11/2023 [facility] active MOXIFLOXACIN HIVES Told by ID not to use because of high risk CDiff 08/14/2016 [facility] active CIPROFLOXACIN HIVES Told by ID not to use because of high risk CDiff [facility] CLINDAMYCIN HIVES HHCCT LEVOFLOXACIN HIVES HHCCT Problems Problem Status Onset Date Problem Type Date of Resolution Source Dysphagia active 2024-06-07 4 ProblemAct [facility] Hiatal hernia active 2016-06-07 4 ProblemAct [facility] Actinic keratoses active 2017-11-05 3 ProblemAct [facility] Hypercholesterolemia active 9 ProblemAct [facility] Esophageal dysmotility active 2024-06-07 4 ProblemAct [facility] Asthma, moderate persistent active 2020-05-09 7 ProblemAct [facility] Smoking history active EncounterDiagnosisAct [facility] N GERD (gastroesophageal reflux disease) active 2014-08-07 7 ProblemAct [facility] Mycobacterium avium-intracellulare complex (CMS/HCC V24, CMS/HCC V28) active 2016-06-07 4 ProblemAct [facility] Coronary artery disease active 3 0 ProblemAct [facility] Shortness of breath on exertion active 2021-11-07 0 ProblemAct [facility] Other chest pain active 2024-06-07 4 ProblemAct [facility] Pulmonary nodules active 2017-11-05 5 ProblemAct [facility] Urge incontinence of urine active EncounterDiagnosisAct CT_[facility]S FRA N Urinary urgency active EncounterDiagnosisAct [facility] N Chronic obstructive pulmonary disease (COPD) ([facility] V24, [facility] V28) active 2017-10-09 7 ProblemAct [facility] N Anxiety active 7 ProblemAct [facility] N Nocturia active EncounterDiagnosisAct [facility] N Urinary frequency active EncounterDiagnosisAct [facility] N Positive cardiac stress test active 2021-11-06 8 ProblemAct [facility] N LEVI (stress urinary incontinence, female) active EncounterDiagnosisAct [facility] N Bronchiectasis ([facility] V24, [facility] V28) active 1 ProblemAct [facility] N Prolapse of anterior vaginal wall active EncounterDiagnosisAct CT_THS FRA N Essential hypertension active 2021-11-07 0 ProblemAct [facility] N Essential tremor active 9 ProblemAct [facility] N Acute viral sinusitis active EncounterDiagnosis Act [facility] Chronic obstructive pulmonary disease active 2017-07-09 0 ProblemAct [facility] Bronchiectasis without complication (HCC) active EncounterDiagnosisAct [facility] Gastroesophageal reflux disease without esophagitis active 2017-07-08 2 ProblemAct [facility] Immunizations Vaccine Date Source Lot Number Status Zoster recombinant (Shingrix ) 19yo and older 07/23/2023 [facility] [id number] completed Influenza trivalent, 0.5mL ( Fluad) 65yo and older 06/19/2023 [facility] [id number] completed Zoster recombinant (Shingrix ) 19yo and older 05/05/2023 [facility] [id number] completed Pneumococcal conjugate 20 va lent (Prevnar 20, PCV 20) 2mo and older 12/04/2022 [facility] [id number] comple shila Tdap Tetanus diptheria acell ular pertussis (Boostrix; Adacel) 7yo and older 09/22/2022 [facility]_NAV[facility] [id number] completed Influenza, Unspecified 07/02/2021 [facility]_JADENAN co mpleted Pfizer SARS-CoV-2 COVID-19, mRNA, LNP-S, preservative free 12/12/2020 [facility]ADENA[facility] completed Pfizer SARS-CoV-2 COVID-19, mRNA, LNP-S, preservative free 11/20/2020 [facility] [id number] completed Pneumococcal polysaccharide 23 valent (Pneumovax 23) 2yo and older 09/24/2020 [facility] [id number] com pleted Pneumococcal conjugate 13 va lent (Prevnar 13, PCV13) 2mo and older 08/12/2019 [facility] [id number] complet ed Influenza, Unspecified 06/14/2019 [facility]_JADENAN co mpleted Influenza, Unspecified 06/29/2018 [facility]_JADENAN co mpleted Influenza trivalent, 0.5mL, preservative free (Fluarix; FluLaval; Fluzone) ages 6mo and older (Afluria) 3 years and older 06/29/2017 [facility]_NILDAAN [id number] completed Influenza, Unspecified 06/29/2017 [facility]_JADENAN co mpleted PPD Test 07/10/2015 [facility] [id number] completed Influenza trivalent, 0.5mL, preservative free (Fluarix; FluLaval; Fluzone) ages 6mo and older (Afluria) 3 years and older 06/05/2015 [facility]_CASSIUS [id number] completed Influenza, Unspecified 06/05/2015 [facility] co mpleted Zoster Live 08/05/2012 [facility]_CAS[facility]US [id number] completed Tdap Tetanus diptheria acell ular pertussis (Boostrix; Adacel) 7yo and older 03/07/2012 CT_KENDALLFRMATEUS completed Encounters Encounter Type Encounter Reason Primary Diagnosis Location Date Ambulatory Urge incontinence Urge incontinence [facility] 02/15/2025 Ambulatory Urge incontinence Urge incontinence [facility] 10/26/2024 Ambulatory Urge incontinence Urge incontinence [facility] 09/06/2024 Ambulatory Acute sinusitis, unspecified Acute sinusitis, unspecified [facility] 08/22/2023 Care Team Organization Name Specialty Phone Email Start Date End Da te [facility] ACO 04/26/2025 [facility] Phyllis Stephenson MD Primary Care 09/12/2024 [facility] Phyllis Stephenson MD Primary Care 09/06/2024 [facility] 09/27/2023 [facility] [employer] PCP Safety Deposit Supervisor 09/27/2023 11/23/2024 [facility] PCP,No Primary Care 08/22/2023 11/23/2024 [facility] NO PCP Primary Care 08/22/2023 08/22/2023 [facility] Darlene Willett Primary Care 02/13/2023 024 [facility] Doc Triana DO Primary Care 07/15/202204/07
--- OUTSIDE RECORDS SUMMARY | 2025-06-23 13:19 | XMS_ITS | Encounter Summary ---
Author Organization [facility] Address [address] [place] [address] Phone Care Team Providers Care Behavioral Health Associate Name Role Phone Pcp, Unknown Primary Care Provider Unavailabl e Genet Hollis MD Primary Care Provider Giovanny Anthony MD Unavailable [phone] Encounter Details Date Type Department Care Team (Late st Contact Info) Description 07/01/2017 Procedure Pass [facility] General Imaging [address] [place] [address] Social History Tobacco Use Types Packs/Day Years [...] on filedocumented in this encounter Care Teams Behavioral Health Associate Relationship Specialty Start Date End Date Pcp, Unknown PCP - General 06/04/17 07/18/17 Genet Hollis MD [address] [place] [phone] PCP - General Internal Medicine 07/19/17 Giovanny Anthony MD [address] [place] [address] [place] [address] Consulting Provider Pulmonary Disease 12/20/18 documented as of this encounter Additional Source Comments The information contained in this document represents components of the legal health record. It is not the complete legal health record.[facility]
--- OUTSIDE RECORDS SUMMARY | 2025-06-23 13:19 | XMS_ITS | Encounter Summary ---
Author Organization [facility] Address [address] [place] [phone] Phone Care Team Providers Care Sales And Service Technician Name Role Phone Pcp, Unknown Primary Care Provider Unavailabl e Genet Hollis MD Primary Care Provider Giovanny Anthony MD Unavailable [phone] Encounter Details Date Type Department Care Team (Late st Contact Info) Description 06/26/2017 Procedure Pass [facility] General Imaging [address] [place] [address] Social History Tobacco Use Types Packs/Day Years [...] on filedocumented in this encounter Care Teams Sales And Service Technician Relationship Specialty Start Date End Date Pcp, Unknown PCP - General 06/04/17 07/18/17 Genet Hollis MD [address] [place] [phone] PCP - General Internal Medicine 07/19/17 Giovanny Anthony MD [address] [place] [address] [place] [address] Consulting Provider Pulmonary Disease 12/20/18 documented as of this encounter Additional Source Comments The information contained in this document represents components of the legal health record. It is not the complete legal health record.[facility]
== END 2025-06-23 11:43 | disposition home or self-care (01) ==
LOC: HO.HPS 10:48
PROVIDERS: PCP Student in an Organized Health Care Education/Training Program; Visit Provider Hospitalist
DX: J41.8 Mixed simple and mucopurulent chronic bronchitis (principal); J47.9 Bronchiectasis, uncomplicated; R91.8 Other nonspecific abnormal finding of lung field; A31.9 Mycobacterial infection, unspecified
CPT/HCPCS: 99214; G2211

== ENCOUNTER → 2025-06-23 10:48 | Outpatient (BNVA) | payer MEDICARE, BC, SELFPAY | PROVIDERS: PCP Student in an Organized Health Care Education/Training Program; Visit Provider Hospitalist | DX: J41.8 Mixed simple and mucopurulent chronic bronchitis (principal); J47.9 Bronchiectasis, uncomplicated; R91.8 Other nonspecific abnormal finding of lung field; A31.9 Mycobacterial infection, unspecified | CPT/HCPCS: 99212 ==

== ENCOUNTER 2025-07-19 10:53 | Outpatient (REF) | payer MEDICARE, BC, SELFPAY ==
--- OUTSIDE RECORDS SUMMARY | 2025-07-19 13:16 | XMS_ITS | Data Portability ---
Author Organization ID - [email or web address], [facility] Address [address] [place] [address] Care Team Providers Care Rewards Consultant Name Role Phone LUDIVINAMOISE JUAN Referring Provider Assessment No assessment recorded. Plan of Treatment Reminders Order Date Submit Date Provider Last Modified By Organization Details Last Modified Time Details Appointments None recorded. Lab None recorded. Referral None recorded. Procedures None recorded. Surgeries None recorded. Imaging None recorded. Medication Orders Lomotil 2.5 mg-0.025 mg tablet 2022 023 [id number], [address] [place], [place], [phone], 3 10:28:48 ciprofloxac in 500 mg tablet 2022 023 [id number], [address] [place], [place], [phone], 3 10:28:49 Patient TargetsNo targets recorded. Patient Instructions Encounter Date Encounter Id Patient Instructions Last Modified By Organization Details Last Modified Time 06/03/2023 [id number] Patient understands instructions and will seek medical attention if symptoms worsen as directed. [email or web address] Not available 06/03/2023 10:30:42 Reason for Referral None Reported. Medical Equipment None Reported. Allergies No known drug allergies Medications Name Sig Start Date Stop Date Status Note LastModified by Organization Details LastModified Time atorvastati n 80 mg tablet TAKE 1 TABLET BY MOUTH DAILY active Not Available Not Available No t Available doxycycline hyclate 100 mg capsule TAKE 1 CAPSULE BY MOUTH TWICE DAILY 06/03 completed Not Available Not Available Not Available sodium chloride 3 % for nebulizatio n INHALE 4ML TWICE DAILY active Not Available Not Available No t Available prednisone 20 mg tablet TAKE 2 TABLETS BY MOUTH DAILY active Not Available Not Available No t Available ciprofloxac in 500 mg tablet Take 1 tablet every 12 hours by oral route for 5 days. 2022 active Not Available Not Available Not Avai lable omeprazole 40 mg capsule,del ayed release TAKE 1 CAPSULE BY MOUTH DAILY active Not Available Not Available No t Available butalbital- acetaminoph en-caffeine 50 mg-325 mg-40 mg tablet TAKE 1 TABLET BY MOUTH EVERY 4 HOURS NEEDED FOR PAIN FOR UP TO 28 DAYS 06/03 completed Not Available Not Available Not Available lorazepam 0.5 mg tablet TAKE 1 TABLET BY MOUTH EVERY DAY FOR UP NEEDED FOR ANXIETY 06/03 completed Not Available Not Available Not Available triamcinolo ne acetonide 0.1 % topical ointment 06/03 completed Not Available Not Available Not Available propranolol ER 80 mg capsule,24 hr,extended release TAKE 1 CAPSULE BY MOUTH AT BEDTIME active Not Available Not Available No t Available codeine 10 mg-guaifene sin 100 mg/5 mL oral liquid TAKE 10ML BY MOUTH EVERY 6 HOURS NEEDED FOR COUGH FOR 10 DAYS 06/03 completed Not Available Not Available Not Available albuterol sulfate HFA 90 mcg/actuati on aerosol inhaler INHALE 2 PUFFS EVERY 6 HOURS NEEDED FOR SHORTNESS OF BREATH / WHEEZING active Not Available Not Available No t Available Lomotil 2.5 mg-0.025 mg tablet Take 1 tablet 4 times a day by oral route for 3 days. 2022 active Not Available Not Available Not Avai lable fluticasone propionate 50 mcg/actuati on nasal spray,suspe nsion SHAKE LIQUID AND USE 2 SPRAYS IN EACH NOSTRIL DAILY active Not Available Not Available No t Available budesonide- formoterol HFA 160 mcg-4.5 mcg/actuati on aerosol inhaler INHALE 2 PUFFS BY MOUTH TWICE DAILY active Not Available Not Available No t Available sodium chloride 7 % for nebulizatio n 06/03 completed Not Available Not Available Not Available BinaxNOW COVID-19 Ag Self Test kit USE DIRECTED 06/03 completed Not Available Not Available Not Available Paxlovid 300 mg (150 mg x 2)-100 mg tablets in a dose pack TK 2 NIRMATREL VIR TS AND 1 RITONAVIR T TOGETHER PO TWICE DAILY X 5 DAYS 06/03 completed Not Available Not Available Not Available Vitals Date Recorded Body weight Body mass index (BMI) Body height Body temperature Oxygen saturation Oxygen saturation in Arterial blood by Pulse oximetry Heart rate Systolic And Diastolic Provider Name and Address Organization Details Last Updated DateTime 3 65213.5 6 g 26.3 kg/m2 167.64 cm 98.1 [degF] 98 % 98 % 72 /min 120/70 mm[Hg] Ike Cerna ID - [facility], [facility] 3 10:05:40 Social History None recorded. Functional Status None recorded. Mental Status None recorded. Family History Nothing Reported. Medical History No medical history recorded. Gynecological HistoryNo gynecological history recorded. Obstetrics History GPAL:G 0 P 0 0 0 0 Past Encounters Encounter ID Performer Location Encounter Start Date Encounter Closed Date Diagnosis/Indication Diagnosis SNOMED-CT Code Diagnosis ICD10 Code Diagnosis IMO Codes Diagnosis Note [id number] Juan Chavarria MD [facility] [address] [place] [address] 06/03/2023 09:57:51 06/03/2023 10:54:40 Diarrhea 55685082 R19.7 Acute illness of uncertain prognosis. I had an extensive discussion regarding the patient's diarrhea. Explained to her that I would not be able to diagnose if there was any internal bleeding and if that was the concern she would need to go directly to the emergency department for further evaluation including stat blood work including liver function test and pancreatic enzymes as well as a contrasted CT scan of the abdomen and pelvis and she could also have her hemoglobin monitored while in the hospital. Those capabiliti es are not available at the walk-in clinic. Patient understand s this. However it seems likely with no history of any GI bleeding in the past and otherwise eating relatively normally feeling hungry and not having tarry stools that it is unlikely to be internal bleeding and more likely to be related to the Pepto-Bism ol. As result I did offer to place her on Lomotil to help with the diarrhea and Cipro to treat any type of infection that may be causing this since its been ongoing for the last 4 days now. However explained to her I would have a very low threshold for her to go to the hospital if she starts to have tarry stools or persistent black stools despite not taking anymore Pepto-Bism ol or any significan t abdominal pain fatigue chest pain shortness of breath or any other concerns she would need to go immediatel y to the emergency room. Patient understand s that a GI bleed can be life-threa tening. Once again if the patient does not show any improvemen t in the next day would recommend evaluation in the emergency department for those tests. Health Concerns Section Related Observation LastModified by Organization Detai ls LastModified Time None Recorded Concern Status LastModified by Organization Details LastModified Time None Recorded Advance Directives Directive None Recorded Payers Insurance Date Sequence Insurance Name Policy Number Policy Ayala Covered Member ID Ayala Member ID Guarantor Name 06/03/2023 2 [place] [id number] Nicole Wallace [id number] Nicole Wallace 06/03/2023 1 [place] [employer] Nicole Wallace [id number] Nicole Wallace 06/04/2023 [place] Nicole Wallace [id number] Nicole Wallace Notes Date Note Type Note Provider Name and Address Organization Details Recorded Time 06/03/2023 text/html Patient is a 67-year-old female who is visiting from [place]. States on Thursday she began to have some normal colored diarrhea. Patient states he is not really having a lot of abdominal cramping or pain. Patient states that on Thursday she caught she would benefit from eating some increased fiber so she ate a lot of greens. States that her stools seem to be a little bit darker after that then she flew down here from [place]. Since that time she has had several more episodes of diarrhea that have been much darker in color but she denies them being tarry in nature. Patient states that she has however been taking Pepto-Bismol. Patient denies any fatigue. She denies any significant abdominal pain. She denies any prior abdominal surgeries. Patient states that she does have a history of GERD and takes omeprazole but no history of any bleeding ulcers diverticulitis or any other internal bleeding. Juan Chavarria MD [address] [address], [place], [address], [facility] - [facility], [facility] 06/03/2023 10:30:55 OBGyn Episode No OBEpisode recorded.
== END 2025-07-19 10:54 | disposition home or self-care (01) ==
LOC: HO.LNP 10:53
PROVIDERS: Visit Provider Hospitalist
DX: R91.1 Solitary pulmonary nodule (principal)
CPT/HCPCS: 87070; 87077; 87116; 87118; 87185; 87205; 87206